=== PATIENT | female | born 1960 | race Caucasian/White ===

== ENCOUNTER → 2020-08-21 | Outpatient (CLI) | payer BC, MEDICARE ==
--- NOTE | 2020-08-21 20:35 | MR ---
EXAMINATION TYPE: MR brain wo/w migel wo DATE OF EXAM: 08/21/2020 COMPARISON: NONE at this institute. 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 Cephalgi a. TECHNIQUE: Multiplanar, multisequence images of the brain and brainstem is performed without and with IV contras t, utilizing 8.5 mL intravenous Gadavist . MRI cervical spine is performed without contrast. FINDINGS: Brain: Diffusion weighted images demonstrate no evidence of a recent infarct or other diffusion abnormality. There is no worrisome extra-axial fluid collection. There is mild ventricular and sulcal prominence . Occasional small scattered focus of T2 hyperintensity seen throughout the white matter bilaterally. Approximately 6-10 small scattered lesions. T2*weighted images show no suspicious intraparenchymal b lood products Midline structures demonstrate normal morphology. There is artifact from lower occipital craniotomy with some encephalomalacia involving the central posterior mid to inferior cerebellum. The craniocerv ical junction appears within normal limits currently. Post contrast images demonstrate no abnormal enhancement. The dural venous sinuses appear patent. The visualized sinuses are clear and the globes are intact. IMPRESSION: Mild diffuse age-related cerebral atrophy and chronic small vessel ischemic change. 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 No suspicious enhancement or new enhanc ing lesions are identified. C-SPINE: FINDINGS: Sagittal images of the cervical spine show the craniocervical junction to appear within nor mal limits. The cervical and upper thoracic spinal cord is normal in course, caliber, and signal. Sl ight grade 1 retrolisthesis C3 on C4 and to lesser degree C4 and C5. The vertebral body heights are normal. Mild disc space narrowing C5-C6 level. The bone marrow signal intensity is within normal limi ts. Axial images show C2-C3 level to appear within normal limits. Axial images at C3-C4 level show spondylolisthesis with central disc protrusion mildly facing anterio r thecal sac, there is some left-sided uncovertebral facet degenerative change causing mild left-side d neural foraminal narrowing. Axial images at C4-C5 level show spondylolisthesis with right paracentral disc protrusion mildly faci ng anterior thecal sac, some uncovertebral facet degenerative changes are present bilaterally but neptali ral foramina are maintained. Axial images at C5-C6 level showed broad based posterior disc protrusion effaces the anterior thecal sac, there is mild bilateral neural foraminal narrowing due to marginal spur disc complex. Axial images at C6-C7 level show most prominent based right paracentral disc protrusion effacing the anterolateral thecal sac and image 15, there is mild right and moderate left-sided neural foraminal n arrowing due to left foraminal disc protrusion component. Axial images at C7-T1 level are within normal limits. IMPRESSION: Multilevel spondylolisthesis and degenerative changes in the cervical spine as detailed a shree.
== END | disposition home or self-care (01) ==
LOC: RADMRIMAIN 18:07
PROVIDERS: ATTEND Family Medicine
DX: R51.9 Headache, unspecified (principal); I67.82 Cerebral ischemia
CPT/HCPCS: 70553; 72141; A9585

== ENCOUNTER → 2023-05-24 | Outpatient (CLI) | payer MEDICARE ==
--- NOTE | 2023-05-26 08:58 | MR ---
EXAMINATION TYPE: MR cervical spine wo con DATE OF EXAM: 05/24/2023 INDICATION: Patient age: Female; 62 years old; Reason for study: HERNIATED NUCLEUS M50.20. Neck and mid-back pain into arms, headaches, Hx meningio ma COMPARISON: 08/21/2020 TECHNIQUE: Multi planar, multi sequence imaging was performed utilizing: T1-weighted, T2-weighted, an d turbo inversion recovery imaging of the cervical spine. IV Contrast: None FINDINGS: Alignment: The cervical vertebral bodies have preserved heights. Alignment is within normal limits gi maximino patient positioning. Bones: Scattered Modic endplate changes with osteophytes and disc space narrowing. Multilevel degener ative disc disease is noted and most pronounced at the C5-C7 vertebral levels. Cord: The spinal cord is unremarkable with regards to their signal intensity and morphology. Discs: Multilevel disc desiccation is present. C2-C3: No significant disc pathology. The spinal canal is patent. Bilateral facet and uncovertebral joint arthropathy are present with mild left neural foraminal stenosis. The right neural foramen is p atent. C3-C4: A disc osteophyte complex is present with mild spinal canal stenosis. Bilateral facet and unc overtebral joint arthropathy are present with mild bilateral neural foraminal stenosis. C4-C5: No significant disc pathology. The spinal canal is patent. Bilateral facet and uncovertebral joint arthropathy are present with mild bilateral neural foraminal stenosis. C5-C6: No significant disc pathology. The spinal canal is patent. Bilateral facet and uncovertebral joint arthropathy are present with mild bilateral neural foraminal stenosis. C6-C7: No significant disc pathology. The spinal canal is patent. Bilateral facet and uncovertebral joint arthropathy are present with moderate left and mild right neural foraminal stenosis. C7-T1: No significant disc pathology. The spinal canal is patent. No neural foraminal stenosis. Other: Cystic structure in the prevertebral space series 601 image 14 and 501 image 13. Measuring 10 mm, previously 6 mm near the proximal esophagus and abuts the proximal esophagus. IMPRESSION: 1. No evidence for disc herniation or significant spinal canal stenosis. 2. Mild disc degeneration with associated osteoarthritic changes not significantly changed from prior . 3. Indeterminate High T2 signal lesion measuring 10 mm within the prevertebral space which has increa sed in size from 2020. This is only partially evaluated on a few sequences on this exam and in the pr ior exam. Consider MRI neck with IV contrast for further evaluation.
== END | disposition home or self-care (01) ==
LOC: RADMRIMAIN 16:58
PROVIDERS: ATTEND Family Medicine
DX: M50.31 Other cervical disc degeneration, high cervical region (principal); M47.812 Spondylosis without myelopathy or radiculopathy, cervical region
CPT/HCPCS: 72141

== ENCOUNTER → 2023-10-12 | Outpatient (CLI) | payer MEDICARE ==
--- NOTE | 2023-10-12 17:32 | CT ---
EXAMINATION TYPE: CT chest w con DATE OF EXAM: 10/12/2023 COMPARISON: None HISTORY: Rt side lung mass. CT DLP: 286.1 mGycm Automated exposure control for dose reduction was used. TECHNIQUE: CT scan of the chest is performed with IV Contrast, patient injected with 100 ml mL of Isovue 300. M IP Images are created on CT scanner and reviewed. 3D reconstructed images are created on an [employer] workstation and reviewed. FINDINGS: LUNGS: There is a 5 mm somewhat ill-defined nodule in the left upper lobe. There is a small focal area of pl eural thickening adjacent to the nodule. There is no airspace/consolidative density or abnormal interstitial density. There is no pleural effusion or pneumothorax. The great vessels chest are normal is no mediastinal, hilar or axillary adenopathy. Limited scanning through the upper abdomen reveals no gross abnormality. No focal osseous lesions are seen. IMPRESSION: 1. No mediastinal mass or adenopathy. 2. Small upper lobe 5 mm lung nodule and adjacent focal pleural thickening. 3 month follow-up CT is recommended to confirm stability.
== END | disposition home or self-care (01) ==
LOC: RADCTMAIN 16:45
PROVIDERS: ATTEND Family Medicine
DX: J94.8 Other specified pleural conditions (principal); R91.1 Solitary pulmonary nodule; R91.8 Other nonspecific abnormal finding of lung field
CPT/HCPCS: 71260; Q9967

== ENCOUNTER → 2024-01-15 | Outpatient (CLI) | payer MEDICARE ==
--- NOTE | 2024-01-17 11:29 | CT ---
EXAMINATION TYPE: CT chest w con CT DLP: 495 mGycm, Automated exposure control for dose reduction was used. DATE OF EXAM: 01/15/2024 12:07 PM COMPARISON: Chest CT 10/12/2023. CLINICAL INDICATION:Female, 63 years old with history of J98.51 MEDIASTINITIS; PHH, nodules TECHNIQUE: Multiple axial images were obtained through the chest. Sagittal and coronal reformats were created for review. Contrast used:100 mL of Isovue 300 with IV Contrast (None if empty) Oral contrast used: (None if empty) FINDINGS: LUNGS/ PLEURA: The lung parenchyma appears unremarkable. AIRWAY: Patent and unremarkable. HEART: Size within normal limits. MEDIASTINUM: No gross evidence of adenopathy. VASCULATURE: No aortic aneurysm. MUSCULOSKELETAL: No acute osseous abnormalities SOFT TISSUES/LYMPH NODES: Unremarkable. LOWER NECK: No significant findings. UPPER ABDOMEN: No significant findings. IMPRESSION: No change in appearance of right upper lobe. No sizable pulmonary mass. Follow up recommendations for incidental pulmonary nodules, if there are any, are per [employer] or [employer]. [email or web address]?lang=us
== END | disposition home or self-care (01) ==
LOC: RADCTMAIN 11:23
PROVIDERS: ATTEND Family Medicine
DX: J98.51 Mediastinitis (principal)
CPT/HCPCS: 71260; Q9967

== ENCOUNTER 2024-05-22 19:53 | Emergency (ER) | payer MEDICARE ==
[2024-05-22 20:11] VITALS: RESP 18; TEMP 98
--- NOTE | 2024-05-22 20:53 | XR ---
EXAMINATION TYPE: XR ribs LT w pa chest xray DATE OF EXAM: 05/22/2024 8:42 PM CLINICAL INDICATION:Female, 63 years old with history of Pain; PHH COMPARISON: CT chest 01/15/2024 TECHNIQUE: Frontal and oblique views of the left ribs with frontal chest radiograph. FINDINGS: The ribs have a normal appearance. No evidence of fracture. Overall, the lungs are clear. The cardiac silhouette is normal in size. The remaining osseous structures are intact. Partially vi sualized lumbar fusion hardware. IMPRESSION: No acute osseous pathology.
[2024-05-22] MEDS: KETOROLAC 15 MG/ML 1 ML VIAL IM STA (21:27)
[2024-05-22] MEDS: LIDOCAINE 4% PATCH TOPICAL ONE (21:29)
[2024-05-22] MEDS: MORPHINE SULFATE 4 MG/ML SYRINGE IM STA (21:30)
[2024-05-22] MEDS: methocarbamoL 750 MG TAB PO STA (21:30)
--- NOTE | 2024-05-22 21:44 | ED ---
General Adult HPI - General Chief complaint: Recheck/Abnormal Lab/Rx Stated complaint: Rib Injury/Pain Time Seen by Provider: 05/22/24 20:16 Source: patient Mode of arrival: wheelchair Limitations: no limitations - History of Present Illness Initial comments: This is a 63-year-old female who presents to the emergency department for pain over the left rib cage. States that her dog jumped on her and she heard/felt a pop, followed by pain. Pain is not severe when sitting still, but states whenever she coughs or moves, it becomes increasingly painful. - Related Data Previous Rx's Medication Instructions Recorded Ketorolac [Toradol] 10 mg PO Q6HR PRN #15 tab 05/22/24 Lidocaine 5% Patch [Lidoderm 5% 1 patch TOPICAL DAILY PRN #30 patch 05/22/24 Patch] methocarbamoL [Robaxin-750] 1,500 mg PO TID PRN #30 tab 05/22/24 Allergies Allergy/AdvReac Type Severity Reaction Status Date / Time Sulfa (Sulfonamide AdvReac Unknown Verified 05/22/24 20:11 Antibiotics) Review of Systems ROS Statement: Those systems with pertinent positive or pertinent negative responses have been documented in the HPI. ROS Other: All systems not noted in ROS Statement are negative. Past Medical History Additional Past Medical History / Comment(s): Arrythmia History of Any Multi-Drug Resistant Organisms: None Reported Past Surgical History: Orthopedic Surgery Past Psychological History: No Psychological Hx Reported Smoking Status: Former smoker Past Alcohol Use History: None Reported Past Drug Use History: None Reported General Exam Limitations: no limitations General appearance: alert, in no apparent distress Head exam: Present: atraumatic, normocephalic, normal inspection Respiratory exam: Present: normal lung sounds bilaterally. Absent: respiratory distress, wheezes, rales, rhonchi, stridor Cardiovascular Exam: Present: regular rate, normal rhythm, normal heart sounds. Absent: systolic murmur, diastolic murmur, rubs, gallop, clicks Neurological exam: Present: alert, oriented X3, CN II-XII intact Psychiatric exam: Present: normal affect, normal mood Skin exam: Present: warm, dry, intact, normal color. Absent: rash Course Vital Signs 05/22/24 05/22/24 20:05 22:40 Temperature 98.0 F Pulse Rate 61 54 L Respiratory 18 18 Rate Blood Pressure 125/72 171/86 O2 Sat by Pulse 97 Oximetry Medical Decision Making - Medical Decision Making This is a 63 year old female who presents to the emergency department for left rib cage pain. Was pt. sent in by a medical professional or institution? @ -No Did you speak to anyone other than the patient for history? @ -No Did you review nursing and triage notes? @ -Yes, and I agree, it is accurate with regards to the patient's symptoms. Were old charts reviewed? @ -No Differential Diagnosis? @ -Differential Rib Pain: Rib fracture, contusion, pneumothorax, pneumonia, this is not meant to be an all-inclusive list. EKG interpreted by me (3pts min.)? @ -Not obtained X-rays interpreted by me (1pt min.)? @ -X-ray of the left rib cage and PA chest obtained. My interpretation identifies no rib fractures. CT interpreted by me (1pt min.)? @ -Not obtained U/S interpreted by me (1pt. min.)? @ -Not obtained What testing was considered but not performed? (CT, X-rays, U/S, labs)? Why? @ -None What meds were considered but not given? Why? @ -None Did you discuss the management of the patient with other professionals? @ -No Did you reconcile home meds? @ -No Was smoking cessation discussed for >3mins.? @ -No Was critical care preformed (if so, how long)? @ -No Were there social determinants of health that impacted care today? How? (Homelessness, low income, unemployed, alcoholism, drug addiction, transportatio n, low edu. Level, literacy, decrease access to med. care, custodial, rehab)? @ -No Was there de-escalation of care discussed even if they declined? (Discuss DNR or withdrawal of care, Hospice)? @ -No What co-morbidities impacted this encounter? (DM, HTN, Smoking, COPD, CAD, Cancer, CVA, Hep., AIDS, mental health diagnosis, sleep apnea, morbid obesity)? @ -None Was patient admitted / discharged? @ -Discharged. X-ray of the left rib cage and chest obtained revealing no obvious rib fractures. Advised that this does not necessarily exclude a hairline fracture and she will be managed the same. Pain was managed in the emergency department. We discussed incentive spirometer use with several deep breaths an hour to reduce the risk of developing a secondary pneumonia. Prescription for Toradol, Robaxin, and lidocaine patches provided. Advised close follow-up with her primary care provider. Patient discharged home in stable condition. Case discussed with ED attending Dr. Gutierrez. Return precautions reviewed in depth, the patient is instructed to return to the emergency department with any new, worsening, or concerning symptoms. Patient verbalized understanding. Undiagnosed new problem with uncertain prognosis? @ -None Drug Therapy requiring intensive monitoring for toxicity (Heparin, Nitro, Insulin, Cardizem)? @ -None Were any procedures done? @ -None Diagnosis/symptom? @ -Left rib contusion Acute, or Chronic, or Acute on Chronic? @ -Acute Uncomplicated (without systemic symptoms) or Complicated (systemic symptoms)? @ -Uncomplicated Side effects of treatment? @ -None Exacerbation, Progression, or Severe Exacerbation] @ -Not applicable Poses a threat to life or bodily function? @ -No - Radiology Data Radiology results: report reviewed, image reviewed Disposition Clinical Impression: Contusion of rib on left side Disposition: HOME SELF-CARE Instructions (If sedation given, give patient instructions): Rib Contusion (ED) Additional Instructions: Return to the emergency department with any new, worsening, or concerning symptoms. Take the Toradol with Tylenol as needed for pain relief. If you choose to take the Toradol, do not take any other anti-inflammatories such as ibuprofen, take one or the other. You can take the Robaxin as 1 to 2 tablets up to 3-4 times daily. This is a muscle relaxant, take either this or what you are already prescribed. You can also apply the lidocaine patches daily. Make sure you take several deep breaths an hour despite the pain to reduce the risk of developing a secondary pneumonia. Follow up with your primary care provider in 1-2 days. Prescriptions: Lidocaine 5% Patch [Lidoderm 5% Patch] 1 patch TOPICAL DAILY PRN #30 patch PRN Reason: Pain methocarbamoL [Robaxin-750] 1,500 mg PO TID PRN #30 tab PRN Reason: Pain Ketorolac [Toradol] 10 mg PO Q6HR PRN #15 tab PRN Reason: Pain Is patient prescribed a controlled substance at d/c from ED?: No Referrals: Yair Peterson DO [Primary Care Provider] - 1-2 days Time of Disposition: 22:02
[2024-05-22 23:01] VITALS: BP 171/86; PULSE 54
== END 2024-05-22 22:41 | disposition home or self-care (01) ==
LOC: EC 19:53
DX: R52 Pain, unspecified
CPT/HCPCS: 96372; 99283

== ENCOUNTER 2025-03-10 01:29 | Inpatient (IN) | payer MEDICARE ==
[2025-03-10] MEDS: ONDANSETRON 4 MG/2 ML VIAL IVP STA (02:31)
[2025-03-10] MEDS: SODIUM CHLORIDE 0.9% 1,000 ML IV ONE (02:31)
[2025-03-10] MEDS: MORPHINE SULFATE 4 MG/ML SYRINGE IVP STA (02:32)
[2025-03-10 02:53] LABS: Basophils # (A) 0.02 10*3/uL (0.00-0.10); Basophils % (A) 0.1 %; Eosinophils # (A) 0.01 10*3/uL (0.04-0.35); Eosinophils % (A) 0.1 %; HCT 32.3 % (37.2-46.3); HGB 11.4 g/dL (12.0-15.0); Lymphocytes # (A) 0.76 10*3/uL (0.90-5.00); Lymphocytes % (A) 5.6 %; MCH 32.9 pg (27.0-32.0); MCHC 35.3 g/dL (32.0-37.0); MCV 93.4 fL (80.0-97.0); Mean Platelet Volume 9.1 fL (9.5-12.2); Monocytes # (A) 0.72 10*3/uL (0.20-1.00); Monocytes % (A) 5.3 %; Neutrophils # (A) 11.96 10*3/uL (1.80-7.70); Neutrophils % (A) 88.5 %; Platelet Count 302 10*3/uL (140-440); RBC 3.46 10*6/uL (4.10-5.20); RDW 12.7 % (11.5-14.5); WBC 13.52 10*3/uL (4.50-10.00)
[2025-03-10 03:18] LABS: ALT 20 U/L (4-34); AST 48 U/L (14-36); African American GFR (CKD) 48 (>60 ml/min/1.73 sqM); Albumin 3.3 g/dL (3.5-5.0); Alkaline Phosphatase 63 U/L (38-126); Anion Gap 13 mmol/L; Blood Urea Nitrogen 35 mg/dL (7-17); Calcium 8.7 mg/dL (8.4-10.2); Carbon Dioxide 22 mmol/L (22-30); Chloride 96 mmol/L (98-107); Glucose 100 mg/dL (74-99); Lipase 68 U/L (23-300); Non-African American GFR(CKD) 41 (>60 ml/min/1.73 sqM); Sodium 131 mmol/L (137-145); Total Bilirubin 0.9 mg/dL (0.2-1.3); Total Protein 5.4 g/dL (6.3-8.2)
[2025-03-10] MEDS: SODIUM CHLORIDE 0.9% 1,000 ML IV SCH ×2 (03:53→06:14)
[2025-03-10] MEDS: HYDROmorphone 0.5 MG/0.5 ML SYRINGE IVP STA (03:54)
--- NOTE | 2025-03-10 04:13 | ED ---
Abdominal Pain HPI - General Chief Complaint: Abdominal Pain Stated Complaint: Bowel obstruction Time Seen by Provider: 03/10/25 02:00 Source: patient, EMS Mode of arrival: EMS Limitations: no limitations - History of Present Illness Initial Comments: 64-year-old female transferred from [facility] for colonic obstruction due to fecal impaction with colonic distention. Patient reports that she has not had a bowel movement in last 3 days. She initially presented to [facility] because of 2 days worth of severe abdominal pain and cramping. She does admit to nausea. She denies any rectal bleeding. No known fevers. No history of abdominal surgeries. At times the pain makes her feel short of breath. At [facility] she underwent CT scan which showed colonic obstruction due to impaction. In the documentation from [facility] she was noted to have a few bowel movements while there however considering that the patient was also hypotensive in the 80-90 systolic range and had leukocytosis of 21.73 she was transferred to our facility for higher level of care. The patient did receive Zosyn and vancomycin by [facility]. Since being here she has had some bowel movements but continues to report pain. - Related Data Home Medications Medication Instructions Recorded Confirmed Cetirizine HCl [Zyrtec] 10 mg PO DAILY 03/10/25 03/10/25 DULoxetine HCL [Cymbalta] 60 mg PO BID 03/10/25 03/10/25 Ergocalciferol (Vitamin D2) 1,250 mcg PO FR 03/10/25 03/10/25 [Drisdol (GEQ) 1,250 MCG (50,000 IU)] HYDROcodone/APAP 10-325MG [[place] 1 tab PO Q8H PRN 03/10/25 03/10/25 10-325] Ibuprofen [Motrin] 800 mg PO Q8H 03/10/25 03/10/25 Magnesium Oxide [Mag-Ox] 400 mg PO DAILY 03/10/25 03/10/25 Melatonin 40 mg PO HS 03/10/25 03/10/25 Mirtazapine [Remeron] 30 mg PO HS 03/10/25 03/10/25 Pravastatin Sodium [Pravachol] 20 mg PO HS 03/10/25 03/10/25 amLODIPine [Norvasc] 5 mg PO DAILY 03/10/25 03/10/25 atenoloL [Tenormin] 100 mg PO HS 03/10/25 03/10/25 hydroCHLOROthiazide [Hydrodiuril] 25 mg PO DAILY 03/10/25 03/10/25 lisinopriL [Zestril] 40 mg PO DAILY 03/10/25 03/10/25 metFORMIN HCL [Glucophage] 500 mg PO DAILY 03/10/25 03/10/25 tiZANidine [Zanaflex] 4 mg PO Q8HR PRN 03/10/25 03/10/25 Allergies Allergy/AdvReac Type Severity Reaction Status Date / Time Sulfa (Sulfonamide AdvReac Unknown Verified 05/22/24 20:11 Antibiotics) Review of Systems ROS Statement: Those systems with pertinent positive or pertinent negative responses have been documented in the HPI. ROS Other: All systems not noted in ROS Statement are negative. Past Medical History Additional Past Medical History / Comment(s): Arrythmia History of Any Multi-Drug Resistant Organisms: None Reported Past Surgical History: Orthopedic Surgery Past Psychological History: No Psychological Hx Reported Smoking Status: Former smoker Past Alcohol Use History: None Reported Past Drug Use History: None Reported - Past Family History Mother Additional Family Medical History / Comment(s): mental health disorders Sister(s) Additional Family Medical History / Comment(s): mental health disorders General Exam Limitations: no limitations General appearance: alert, in no apparent distress Head exam: Present: atraumatic, normocephalic, normal inspection Eye exam: Present: normal appearance, EOMI Neck exam: Present: normal inspection. Absent: meningismus Respiratory exam: Present: normal lung sounds bilaterally. Absent: respiratory distress, wheezes, rales, rhonchi, stridor Cardiovascular Exam: Present: regular rate, normal rhythm, normal heart sounds. Absent: systolic murmur, diastolic murmur, rubs, gallop, clicks GI/Abdominal exam: Present: soft, tenderness. 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 sent in by a medical professional or institution (, PA, OIL FIELD TESTER, urgent care, hospital, or long-term...) When possible be specific @ -No Did you speak to anyone other than the patient for history (EMS, parent, family, police, friend...)? What history was obtained from this source @ -No Did you review nursing and triage notes (agree or disagree)? Why? @ -I reviewed and agree with nursing and triage notes Were old charts reviewed (outside hosp., previous admission, EMS record, old EKG, old radiological studies, urgent care reports/EKG's, long-term records)? Report findings @ -Reviewed the records from [facility] Differential Diagnosis (chest pain, altered mental status, abdominal pain women, abdominal pain men, vaginal bleeding, weakness, fever, dyspnea, syncope, headache, dizziness, GI bleed, back pain, seizure, CVA, palpatations, mental health, musculoskeletal)? @ -[facility] Differential Abdominal Pain Women: Appendicitis, Cholecystitis, diverticulosis, ischemic bowel, pancreatitis, hepatitis, UTI, gastroenteritis, AAA, incarcerated hernia, bowel obstruction, constipation, inflammatory bowel, hepatitis, peptic ulcer disease, splenic infarction, perforated viscus, vulvitis, ovarian torsion, PID, kidney stone, placenta abruption... This is not meant to be an all-inclusive list EKG interpreted by me (3pts min.). @ -As above X-rays interpreted by me (1pt min.). @ -[facility] x-ray does show several air-fluid levels CT interpreted by me (1pt min.). @ -Repeat CT obtained, report is pending U/S interpreted by me (1pt. min.). @ -None done What testing was considered but not performed or refused? (CT, X-rays, U/S, labs)? Why? @ -None What meds were considered but not given or refused? Why? @ -None Did you discuss the management of the patient with other professionals (professionals i.e. , PA, OIL FIELD TESTER, lab, RT, psych nurse, clinical social work therapist, head of conservation, teacher, training and development officer, medical case worker)? Give summary @ -My attending spoke with the [facility] provider on-call who accepted admission Was smoking cessation discussed for >3mins.? @ -No Was critical care preformed (if so, how long)? @ -No Were there social determinants of health that impacted care today? How? (Homelessness, low income, unemployed, alcoholism, drug addiction, transpor tation, low edu. Level, literacy, decrease access to med. care, longterm, rehab)? @ -No Was there de-escalation of care discussed even if they declined (Discuss DNR or withdrawal of care, Hospice)? DNR status @ -No What co-morbidities impacted this encounter? (DM, HTN, Smoking, COPD, CAD, Cancer, CVA, ARF, Chemo, Hep., AIDS, mental health diagnosis, sleep apnea, morbid obesity)? @ -None Was patient admitted / discharged? Hospital course, mention meds given and route, prescriptions, significant lab abnormalities, going to OR and other pertinent info. @ -64-year-old female transferred from [facility] for abdominal pain. At [facility] CT indicated that she had a colonic obstruction secondary to fecal impaction. Patient has had several bowel movements while here, though she does report continued abdominal pain and nausea. [facility] x-ray is obtained which does show several air-fluid levels. Lactic acid is 2.5, creatinine 1.35 and BUN 35, patient is receiving IV fluids. White count 13.52, patient received Zosyn and vancomycin at [facility]. Hemoglobin 11.4. Patient will require admission for abdominal pain and possible colonic obstruction. Repeat CT of the abdomen and pelvis was obtained. Patient is agreeable with this plan. I discussed this case with my attending Dr. Trachy Undiagnosed new problem with uncertain prognosis? @ -No Drug Therapy requiring intensive monitoring for toxicity (Heparin, Nitro, Insulin, Cardizem)? @ -No Were any procedures done? @ -No Diagnosis/symptom? @ -Abdominal pain, colonic obstruction Acute, or Chronic, or Acute on Chronic? @ -Acute Uncomplicated (without systemic symptoms) or Complicated (systemic symptoms)? @ -Complicated Side effects of treatment? @ -No Exacerbation, Progression, or Severe Exacerbation? @ -No Poses a threat to life or bodily function? How? (Chest pain, [place], [place], pneumonia, PE, COPD, DKA, ARF, appy, cholecystitis, CVA, Diverticulitis, Homicidal, Suicidal, threat to staff... and all critical care pts) @ -Yes - Lab Data Result diagrams: 03/10/25 02:28 03/10/25 02:28 Lab Results 03/10/25 03/10/25 03/10/25 Range/Units 02:28 02:28 02:28 WBC 13.52 H (4.50-10.00) 10*3/uL RBC 3.46 L (4.10-5.20) 10*6/uL Hgb 11.4 L (12.0-15.0) g/dL Hct 32.3 L (37.2-46.3) % MCV 93.4 (80.0-97.0) fL MCH 32.9 H (27.0-32.0) pg MCHC 35.3 (32.0-37.0) g/dL Plt Count 302 (140-440) 10*3/uL MPV 9.1 L (9.5-12.2) fL Immature Gran % (Auto) 0.4 % Neutrophils % 88.5 % Lymphocytes % 5.6 % Monocytes % 5.3 % Eosinophils % 0.1 % Basophils % 0.1 % Immature Gran # 0.05 H (0.00-0.04) 10*3/uL Neutrophils # 11.96 H (1.80-7.70) 10*3/uL Lymphocytes # 0.76 L (0.90-5.00) 10*3/uL Monocytes # 0.72 (0.20-1.00) 10*3/uL Eosinophils # 0.01 L (0.04-0.35) 10*3/uL Basophils # 0.02 (0.00-0.10) 10*3/uL Sodium 131 L (137-145) mmol/L Potassium 4.0 (3.5-5.1) mmol/L Chloride 96 L (98-107) mmol/L Carbon Dioxide 22 (22-30) mmol/L Anion Gap 13 mmol/L BUN 35 H (7-17) mg/dL Creatinine 1.35 H (0.52-1.04) mg/dL Est GFR (CKD-EPI)AfAm 48 (>60 ml/min/1.73 sqM) Est GFR (CKD-EPI)NonAf 41 (>60 ml/min/1.73 sqM) Glucose 100 H (74-99) mg/dL Estimated Ave Glu mg/dL mg/dL Hemoglobin A1c (<=6.0) % Lactic Ac Sepsis Rflx Plasma Lactic Acid Ga 2.5 H* (0.7-2.0) mmol/L Calcium 8.7 (8.4-10.2) mg/dL Total Bilirubin 0.9 (0.2-1.3) mg/dL AST 48 H (14-36) U/L ALT 20 (4-34) U/L Alkaline Phosphatase 63 (38-126) U/L C-Reactive Protein (<1.0) mg/dL Total Protein 5.4 L (6.3-8.2) g/dL Albumin 3.3 L (3.5-5.0) g/dL Lipase 68 (23-300) U/L 03/10/25 03/10/25 03/10/25 Range/Units 02:28 02:28 03:47 WBC (4.50-10.00) 10*3/uL RBC (4.10-5.20) 10*6/uL Hgb (12.0-15.0) g/dL Hct (37.2-46.3) % MCV (80.0-97.0) fL MCH (27.0-32.0) pg MCHC (32.0-37.0) g/dL Plt Count (140-440) 10*3/uL MPV (9.5-12.2) fL Immature Gran % (Auto) % Neutrophils % % Lymphocytes % % Monocytes % % Eosinophils % % Basophils % % Immature Gran # (0.00-0.04) 10*3/uL Neutrophils # (1.80-7.70) 10*3/uL Lymphocytes # (0.90-5.00) 10*3/uL Monocytes # (0.20-1.00) 10*3/uL Eosinophils # (0.04-0.35) 10*3/uL Basophils # (0.00-0.10) 10*3/uL Sodium (137-145) mmol/L Potassium (3.5-5.1) mmol/L Chloride (98-107) mmol/L Carbon Dioxide (22-30) mmol/L Anion Gap mmol/L BUN (7-17) mg/dL Creatinine (0.52-1.04) mg/dL Est GFR (CKD-EPI)AfAm (>60 ml/min/1.73 sqM) Est GFR (CKD-EPI)NonAf (>60 ml/min/1.73 sqM) Glucose (74-99) mg/dL Estimated Ave Glu mg/dL 120 mg/dL Hemoglobin A1c 5.8 (<=6.0) % Lactic Ac Sepsis Rflx Y Plasma Lactic Acid Ga (0.7-2.0) mmol/L Calcium (8.4-10.2) mg/dL Total Bilirubin (0.2-1.3) mg/dL AST (14-36) U/L ALT (4-34) U/L Alkaline Phosphatase (38-126) U/L C-Reactive Protein 0.9 (<1.0) mg/dL Total Protein (6.3-8.2) g/dL Albumin (3.5-5.0) g/dL Lipase (23-300) U/L Disposition Clinical Impression: Abdominal pain Disposition: ADMITTED IP TO THIS HOSP Condition: Fair
[2025-03-10] MEDS ORDERED: ONDANSETRON 4 MG/2 ML VIAL IVP PRN (04:30)
[2025-03-10] MEDS ORDERED: NALOXONE 0.4 MG/ML 1 ML VIAL IV PRN (04:30)
--- NOTE | 2025-03-10 05:48 | XR ---
EXAM: XR Abdomen, 2 Views CLINICAL HISTORY: ITS.REASON XR Reason: pain TECHNIQUE: Frontal view of the abdomen/pelvis with upright view of the abdomen. COMPARISON: No relevant prior studies available. FINDINGS: Intraperitoneal space: No free air. Gastrointestinal tract: Air-fluid levels are seen within the abdomen which is a nonspecific bowel gas pattern. No dilation. Bones/joints: Posterior spinal fusion is in place at L4-S1. Degenerative changes are seen in the spine and hips. No acute fracture. IMPRESSION: No acute findings in the abdomen or pelvis.
--- NOTE | 2025-03-10 05:55 | CT ---
EXAM: CT Abdomen and Pelvis With Intravenous Contrast CLINICAL HISTORY: ITS.REASON CT Reason: abdominal pain TECHNIQUE: Axial computed tomography images of the abdomen and pelvis with intravenous contrast. CTDI is 25.5 mGy and DLP is 1233.8 mGy-cm. This CT exam was performed using one or more of the following dose reduction techniques: automated exposure control, adjustment of the mA and/or kV according to patient size, and/or use of iterative reconstruction technique. COMPARISON: No relevant prior studies available. FINDINGS: Lung bases: Unremarkable. No mass. No consolidation. ABDOMEN: Liver: Findings suggestive of hepatic steatosis. Gallbladder and bile ducts: Dilatation of the gallbladder lumen with question of gallbladder wall thickening. No cholelithiasis. No choledocholithiasis. Pancreas: Unremarkable. No mass. No ductal dilation. Spleen: Unremarkable. No splenomegaly. Adrenals: Unremarkable. No mass. Kidneys and ureters: Unremarkable. No solid mass. No hydronephrosis. Stomach and bowel: Diffuse colonic wall thickening. No evidence of obstruction. Fluid density is seen within the colonic lumen suggesting increased transit state. PELVIS: Appendix: No findings to suggest acute appendicitis. Bladder: Unremarkable. No mass. Reproductive: Unremarkable as visualized. ABDOMEN and PELVIS: Intraperitoneal space: Free fluid is seen surrounding the liver and the dependent portion of the pelvis. No free air. Bones/joints: Posterior spinal fusion is in place at L3-S1. Degenerative changes are seen within the spine and hips. No acute fracture. No dislocation. Soft tissues: Unremarkable. Vasculature: Unremarkable. No abdominal aortic aneurysm. Lymph nodes: Unremarkable. No enlarged lymph nodes. IMPRESSION: 1. Diffuse colitis which may represent underlying infectious or inflammatory process. No associated obstruction. 2. Dilatation of the gallbladder lumen and question of gallbladder wall thickening. If concern for acute cholecystitis recommend right upper quadrant ultrasound.
--- NOTE | 2025-03-10 06:34 | XR ---
EXAM: XR Chest, 1 View CLINICAL HISTORY: ITS.REASON XR Reason: ng tube placement TECHNIQUE: Frontal view of the chest. COMPARISON: No relevant prior studies available. FINDINGS: Lungs: Unremarkable. No consolidation. Pleural space: Unremarkable. No pneumothorax. Heart: Unremarkable. No cardiomegaly. Mediastinum: Unremarkable. Normal mediastinal contour. Bones/joints: Right shoulder arthroplasty is in place. No acute fracture. Tubes, lines and devices: Enteric tube is in place with the side-port at the level of the gastroesophageal junction, recommend advancement. IMPRESSION: 1. Enteric tube as above. 2. Otherwise no acute findings seen within the chest.
[2025-03-10] MEDS ORDERED: DEXTROSE 50% SYRINGE 50 ML IVP PRN ×2 (09:57)
[2025-03-10] MEDS: HYDROmorphone 0.5 MG/0.5 ML SYRINGE IVP PRN (10:14)
[2025-03-10] MEDS: CEFEPIME 2 GM in SODIUM CHLORIDE 0.9% 100 ML IVPB SCH (10:15)
[2025-03-10 10:39] LABS: Glucose,Whole Blood 109 mg/dL (70-110)
--- NOTE | 2025-03-10 11:03 | US ---
EXAMINATION TYPE: US gallbladder DATE OF EXAM: 03/10/2025 COMPARISON: NONE CLINICAL INDICATION: Female, 64 years old with history of RUQ abdominal pain; Abdominal pain TECHNIQUE: Grayscale and color Doppler imaging of the right upper quadrant. FINDINGS: EXAM MEASUREMENTS: Liver Length: 18.2 cm Gallbladder Wall: 0.2 cm CBD: 0.5 cm, color Doppler imaging was used to identify. Right Kidney: 9.6 x 4.5 x 4.3 cm PRINT OPERATOR NOTES: Pancreas: portions visualized wnl, tail obscured by overlying bowel gas. Liver: Enlarged, free fluid noted around the right lobe of the liver Gallbladder: limited visibility, internal echoes may or may not be artifactual. Evidence for sonographic Brand's sign: No CBD: wnl Right Kidney: wnl, very obscured by bowel gas and patient habitus. Hypoechoic tubular structure that did not peristalse within the epigastric region going toward the JAYNA Q, unknown origin/etiology. There is a loop of bowel present in this region based on the CT examinati on. Exam very limited due to bowel gas, patient body habitus, and intercostal scanning. IMPRESSION: 1. Small amount of free fluid adjacent to the liver. 2. [facility]atome[facility]aly [facility], , 03/10/2025 11:01 AM
[2025-03-10] MEDS: INSULIN LISPRO (HumaLOG) 100 UNIT/ML 10 mL VL SQ SCH ×2 (11:47→17:00)
[2025-03-10] MEDS: metroNIDAZOLE-NS PMX 500 MG in SALINE 1 100ML.BAG IVPB SCH (11:48)
--- NOTE | 2025-03-10 13:36 | P.GSCN ---
History of Present Illness Consult date: 03/10/25 History of present illness: CHIEF COMPLAINT: Abdominal pain HISTORY OF PRESENT ILLNESS: This is a 64-year-old male who presents to the ER due to abdominal pain x 1 week and over the last couple of days the pain has increased. Patient describes the pain as feeling like menstrual cramps that radiate to the back. Patient initially had gone to [facility] and was found to have concerns for bowel obstruction secondary to fecal impaction. Patient reports having a few bowel movements there. She reports that the stool was both liquid and solid. She also had 1 episode of vomiting while she was there. Due to hypotension and the fecal impaction she was transferred to [facility] for evaluation. A repeat scalp CAT scan was completed here that had reported that diffuse colitis and no evidence of bowel obstruction. Did report dilatation of the gallbladder and questionable gallbladder wall thickening. Patient did report having pain in the right upper quadrant. She did have a lactic acid and white count elevated on admission. Patient denies any prior history of colitis. She reports her last colonoscopy was a year ago with no significant findings and she has had an EGD about 2 to 3 months ago and has a known hiatal hernia. Patient does report taking pain medication at home due to chronic back pain and history of fibromyalgia. She denies any prior abdominal surgeries. Hypotension improving. Patient seen and examined with Dr. Jacobson PAST MEDICAL HISTORY: Fibromyalgia, chronic back pain, arrhythmias PAST SURGICAL HISTORY: See below MEDICATIONS: See below ALLERGIES: See below SOCIAL HISTORY: No illicit drug use. REVIEW OF SYSTEMS: CONSTITUTIONAL: Denies fever or chills. HEENT: Denies blurred vision, vision changes, or eye pain. Denies hemoptysis CARDIOVASCULAR: Denies chest pain or pressure. RESPIRATORY: No shortness of breath. GASTROINTESTINAL: See HPI for pertinent findings HEMATOLOGIC: Denies bleeding disorders. GENITOURINARY: Denies any blood in urine or increased urinary frequency. SKIN: Denies pruitis. Denies rash. PHYSICAL EXAM: VITAL SIGNS: Reviewed GENERAL: Well-developed in no acute distress. HEENT: No sclera icterus. Extraocular movements grossly intact. Moist buccal mucosa. Head is atraumatic, normocephalic. No nasal drainage. ABDOMEN: Soft. Nondistended. Tenderness palpation right upper quadrant no rebound or guarding noted NEUROLOGIC: Alert and oriented. Cranial nerves II through XII grossly intact. LABORATORY DATA: WBC 13.52 Hgb 11.4 platelets 302 Sodium 131 potassium 4.0 creatinine 1.35 Lactic acid 2.5 down to 1.8 Lipase 68 total bilirubin 0.9 AST 48 ALT 20 alk phos 63 IMAGING: CT scan abdomen pelvis from [place] reports impacted stool within the sigmoid colon and rectum with upstream colonic obstruction. Colonic distention up to 7 cm. No pneumatosis perforation or abscess. Mucosal thickening within the duodenum consistent with nonspecific duodenitis CT scan pelvis from [facility] reports diffuse colitis which may represent underlying infectious or inflammatory process. No associated obstruction. Dilatation of the gallbladder lumen and question of gallbladder wall thickening. If concern for acute cholecystitis recommend right upper quadr ant abdominal ultrasound Gallbladder ultrasound reports small amount of free air adjacent to the liver hepatomegaly. Gallbladder Limited visibility ASSESSMENT: 1. Abdominal pain 2. Bowel obstruction secondary to fecal impaction noted on CT scan from [facility]. Repeat CAT scan here shows no evidence of bowel obstruction but does report diffuse colitis. Patient had large bowel movements at [place]. 3. Diffuse colitis noted on CT scan PLAN: -Discontinue NG tube -Advance diet to clear liquids -Agree with antibiotics -Continue IV fluids -Continue pain management -Increase activity level - DVT prophylaxis subcu heparin Physician Provider Relations Coordinator note has been reviewed by physician. Signing provider agrees with the documented findings, assessment, and plan of care. Past Medical History Additional Past Medical History / Comment(s): Arrythmia History of Any Multi-Drug Resistant Organisms: None Reported Past Surgical History: Orthopedic Surgery Past Psychological History: No Psychological Hx Reported Smoking Status: Former smoker Past Alcohol Use History: None Reported Past Drug Use History: None Reported Medications and Allergies Home Medications Medication Instructions Recorded Confirmed Type Cetirizine HCl [Zyrtec] 10 mg PO DAILY 03/10/25 03/10/25 History DULoxetine HCL [Cymbalta] 60 mg PO BID 03/10/25 03/10/25 History Ergocalciferol (Vitamin D2) 1,250 mcg PO FR 03/10/25 03/10/25 History [Drisdol (GEQ) 1,250 MCG (50,000 IU)] HYDROcodone/APAP 10-325MG [[place] 1 tab PO Q8H PRN 03/10/25 03/10/25 History 10-325] Ibuprofen [Motrin] 800 mg PO Q8H 03/10/25 03/10/25 History Magnesium Oxide [Mag-Ox] 400 mg PO DAILY 03/10/25 03/10/25 History Melatonin 40 mg PO HS 03/10/25 03/10/25 History Mirtazapine [Remeron] 30 mg PO HS 03/10/25 03/10/25 History Pravastatin Sodium [Pravachol] 20 mg PO HS 03/10/25 03/10/25 History amLODIPine [Norvasc] 5 mg PO DAILY 03/10/25 03/10/25 History atenoloL [Tenormin] 100 mg PO HS 03/10/25 03/10/25 History hydroCHLOROthiazide [Hydrodiuril] 25 mg PO DAILY 03/10/25 03/10/25 History lisinopriL [Zestril] 40 mg PO DAILY 03/10/25 03/10/25 History metFORMIN HCL [Glucophage] 500 mg PO DAILY 03/10/25 03/10/25 History tiZANidine [Zanaflex] 4 mg PO Q8HR PRN 03/10/25 03/10/25 History Allergies Allergy/AdvReac Type Severity Reaction Status Date / Time Sulfa (Sulfonamide AdvReac Unknown Verified 05/22/24 20:11 Antibiotics) Surgical - Exam Vital Signs Temp Pulse Resp BP Pulse Ox 97.8 F 55 L 18 108/69 94 L 03/10/25 01:38 03/10/25 01:38 03/10/25 01:38 03/10/25 01:38 03/10/25 01:38 Results - Labs 03/10/25 02:28 03/10/25 02:28 Abnormal Lab Results - Last 24 Hours (Table) 03/10/25 03/10/25 03/10/25 Range/Units 02:28 02:28 02:28 WBC 13.52 H (4.50-10.00) 10*3/uL RBC 3.46 L (4.10-5.20) 10*6/uL Hgb 11.4 L (12.0-15.0) g/dL Hct 32.3 L (37.2-46.3) % MCH 32.9 H (27.0-32.0) pg MPV 9.1 L (9.5-12.2) fL Immature Gran # 0.05 H (0.00-0.04) 10*3/uL Neutrophils # 11.96 H (1.80-7.70) 10*3/uL Lymphocytes # 0.76 L (0.90-5.00) 10*3/uL Eosinophils # 0.01 L (0.04-0.35) 10*3/uL Sodium 131 L (137-145) mmol/L Chloride 96 L (98-107) mmol/L BUN 35 H (7-17) mg/dL Creatinine 1.35 H (0.52-1.04) mg/dL Glucose 100 H (74-99) mg/dL Plasma Lactic Acid Ga 2.5 H* (0.7-2.0) mmol/L AST 48 H (14-36) U/L Total Protein 5.4 L (6.3-8.2) g/dL Albumin 3.3 L (3.5-5.0) g/dL Diabetes panel 03/10/25 Range/Units 02:28 Sodium 131 L (137-145) mmol/L Potassium 4.0 (3.5-5.1) mmol/L Chloride 96 L (98-107) mmol/L Carbon Dioxide 22 (22-30) mmol/L BUN 35 H (7-17) mg/dL Creatinine 1.35 H (0.52-1.04) mg/dL Glucose 100 H (74-99) mg/dL Calcium 8.7 (8.4-10.2) mg/dL AST 48 H (14-36) U/L ALT 20 (4-34) U/L Alkaline Phosphatase 63 (38-126) U/L Total Protein 5.4 L (6.3-8.2) g/dL Albumin 3.3 L (3.5-5.0) g/dL Calcium panel 03/10/25 Range/Units 02:28 Calcium 8.7 (8.4-10.2) mg/dL Albumin 3.3 L (3.5-5.0) g/dL Pituitary panel 03/10/25 Range/Units 02:28 Sodium 131 L (137-145) mmol/L Potassium 4.0 (3.5-5.1) mmol/L Chloride 96 L (98-107) mmol/L Carbon Dioxide 22 (22-30) mmol/L BUN 35 H (7-17) mg/dL Creatinine 1.35 H (0.52-1.04) mg/dL Glucose 100 H (74-99) mg/dL Calcium 8.7 (8.4-10.2) mg/dL Adrenal panel 03/10/25 Range/Units 02:28 Sodium 131 L (137-145) mmol/L Potassium 4.0 (3.5-5.1) mmol/L Chloride 96 L (98-107) mmol/L Carbon Dioxide 22 (22-30) mmol/L BUN 35 H (7-17) mg/dL Creatinine 1.35 H (0.52-1.04) mg/dL Glucose 100 H (74-99) mg/dL Calcium 8.7 (8.4-10.2) mg/dL Total Bilirubin 0.9 (0.2-1.3) mg/dL AST 48 H (14-36) U/L ALT 20 (4-34) U/L Alkaline Phosphatase 63 (38-126) U/L Total Protein 5.4 L (6.3-8.2) g/dL Albumin 3.3 L (3.5-5.0) g/dL
[2025-03-10] MEDS: ACETAMINOPHEN IV (For NPO) 1,000 MG in EMPTY BAG 1 BAG IVPB ONE (13:44)
[2025-03-10 14:26] LABS: Glucose,Whole Blood 131 mg/dL (70-110)
--- NOTE | 2025-03-10 15:22 | P.HPIM ---
History of Present Illness H&P Date: 03/10/25 Patient is a 64-year-old female with hypertension, depression, insomnia, no history of abdominal surgery here as transfer from [facility] due to severe abdominal pain. Patient reported that she has not had a bowel movement in the last 3 days and was experiencing worsening cramping abdominal pain with associated nausea in the last 5 days that was worse with movement and deep inhalations. She sought care in [facility] due to 2 days of severe abdominal pain with associated nausea and multiple epsiodes of vomiting that was dark but nonbloody. She underwent a CT scan of the abdomen and results showed colonic obstruction with distension due to impaction. Prior to transfer patient was given 2L IV fluid boluses, placed on Zosyn and vancomycin and did have a few bowel movements that watery but nonbloody during admission however patient was consistently hypotensive with an SBP of 80-90 and leukocytosis of 21.7 which led them to transfer to our facility for higher level of care. She denied fevers, hematochezia, jaundice, abdominal distention, bruising or bleeding. She says she usually has a BM 1-2 days. Diet consists of fruits like grapes, watermelon, apples, banannas. Has had a colonoscopy for cancer screening and was negative. On admission: Vitals: Temp 97.8, pulse rate 55, RR 18, BP 108/69, O2 saturation 94% on room air Labs: WBC 13.5, hemoglobin 11.4, MCV 93.4, platelet count 302,000, sodium 131, potassium 4, chloride 96, bicarb 22, BUN 35, creatinine 1.35 glucose 100, lactic acid 2.5, AST 48, calcium 8.7, lipase 68. Imaging: KUB x-ray showed no acute findings in the abdomen or pelvis. Abdominal pelvis CT showed diffuse colitis with no associated obstruction, dilation of the gallbladder lumen and questionable gallbladder bladder wall thickening. Chest x-ray showed no acute findings. ED documentation reviewed. Review of systems: Pertinent positives and negatives as discussed in HPI, a complete review of systems was performed and all other systems are negative. Social history: Tobacco: Former smoker. Quit in 1988. 1-2ppd for 15 years. Alcohol: Former history of intake. Quit 20 years ago. Daily beer jugs 6-10 for 20 years. Recreational drugs: none Travel: none Physical examination: Vital signs reviewed General: non toxic, mild distress, appears at stated age, on room air Derm: no unusual rashes/lesions, warm Head: atraumatic, normocephalic, symmetric Eyes: EOMI, anicteric sclera, pupils equal round reactive to light ENT: Nose and ears atraumatic, NG tube noted Neck: No cervical lymphadenopathy, trachea midline, supple Mouth: no lip lesion, mucus membranes moist Cardiovascular: S1S2 reg, no murmur Lungs: CTA bilateral, no rhonchi, no rales, no accessory muscle use Abdominal: soft, nondistended, RLQ and RUQ pain on deep palpation, no guarding, diminished bowel sounds Ext: muscle strength 5 out of 5 in all 4 extremities grossly, no gross muscle atrophy, no contractures, positive dorsalis pedis pulse bilateral, no edema Neuro: CN II-XI grossly intact, no gross focal neuro deficits Psych: Alert and oriented x 3, appropriate affect and mood Assessment/Plan: 64-year-old female with no history of abdominal surgery, depression, hypertension here as a transfer from [facility] due to abdominal pain. Evaluated as colonic obstruction with distention from fecal impaction. Transferred to our facility for higher level of care due to persistent hypotension. Found to have MICHAELLE and anemia on admission The patient is admitted with an anticipated greater than than 2 midnight stay for evaluation of abdominal pain secondary to colitis and infectious causes Active: #. Colitis, likely infectious cause, rule out other causes #. Lactic acidosis secondary to above, resolved Abdominal pelvis CT showed diffuse colitis with no associated obstruction, dilation of the gallbladder lumen and questionable gallbladder bladder wall thickening Empiric IV antibiotics with Ceftriaxone and metronidazole Continue with IV pain control and Zofran IV for nausea lactic acid 2.5 -> 1.8 N.p.o. for now Gallbladder ultrasound ordered Surgery consulted #. Acute Kidney Injury, prerenal #. Hypotension - BUN 35, creatinine 1.35 - CT abdomen pelvis shows no hydronephrosis -Monitor UO and BP -Avoid nephrotoxic agents -IVF 0.9 normal saline at 130 cc/h #. Normocytic anemia Hemoglobin 11.4, MCV 93.4 Will monitor CBC Chronic Conditions: #. Diabetes mellitus -Hemoglobin A1c ordered -Hold home medications -Glucose Accu-Cheks every 4 hours -Initiate Insulin sliding scale every 4 hours -Monitor for hypoglycemia #. Hypertension #. Depression Hold antihypertensives for now as BP is labile Hold NSAIDs and diuretics for now Continue with home Cymbalta, melatonin, Remeron if can handle oral medications. DVT ppx: Heparin subcu CODE STATUS: Full Discussed with: Patient Anticipated discharge place: Home Shirin Sellers MD PGY-1 Internal Medicine Dictation was produced using [employer] dictation software. please excuse any grammatical, word or spelling errors. Attestation: I have seen and examined this patient with my resident, assessment and plan discussed with the resident, agree with assessment and plan as written above. Dr. Gary Past Medical History Additional Past Medical History / Comment(s): Arrythmia History of Any Multi-Drug Resistant Organisms: None Reported Past Surgical History: Orthopedic Surgery Past Psychological History: No Psychological Hx Reported Smoking Status: Former smoker Past Alcohol Use History: None Reported Past Drug Use History: None Reported Medications and Allergies Home Medications Medication Instructions Recorded Confirmed Type Cetirizine HCl [Zyrtec] 10 mg PO DAILY 03/10/25 03/10/25 History DULoxetine HCL [Cymbalta] 60 mg PO BID 03/10/25 03/10/25 History Ergocalciferol (Vitamin D2) 1,250 mcg PO FR 03/10/25 03/10/25 History [Drisdol (GEQ) 1,250 MCG (50,000 IU)] HYDROcodone/APAP 10-325MG [[place] 1 tab PO Q8H PRN 03/10/25 03/10/25 History 10-325] Ibuprofen [Motrin] 800 mg PO Q8H 03/10/25 03/10/25 History Magnesium Oxide [Mag-Ox] 400 mg PO DAILY 03/10/25 03/10/25 History Melatonin 40 mg PO HS 03/10/25 03/10/25 History Mirtazapine [Remeron] 30 mg PO HS 03/10/25 03/10/25 History Pravastatin Sodium [Pravachol] 20 mg PO HS 03/10/25 03/10/25 History amLODIPine [Norvasc] 5 mg PO DAILY 03/10/25 03/10/25 History atenoloL [Tenormin] 100 mg PO HS 03/10/25 03/10/25 History hydroCHLOROthiazide [Hydrodiuril] 25 mg PO DAILY 03/10/25 03/10/25 History lisinopriL [Zestril] 40 mg PO DAILY 03/10/25 03/10/25 History metFORMIN HCL [Glucophage] 500 mg PO DAILY 03/10/25 03/10/25 History tiZANidine [Zanaflex] 4 mg PO Q8HR PRN 03/10/25 03/10/25 History Allergies Allergy/AdvReac Type Severity Reaction Status Date / Time Sulfa (Sulfonamide AdvReac Unknown Verified 05/22/24 20:11 Antibiotics) Physical Exam Vitals: Vital Signs Temp Pulse Resp BP Pulse Ox 03/10/25 06:27 65 18 97/60 97 03/10/25 06:00 64 18 85/58 97 03/10/25 04:45 57 L 24 100/84 97 03/10/25 04:00 58 L 20 89/54 95 03/10/25 03:30 59 L 20 93/68 94 L 03/10/25 01:38 97.8 F 55 L 18 108/69 94 L Intake and Output 03/09/25 03/10/25 03/10/25 22:59 06:59 14:59 Other: Weight 76.204 kg Results CBC & Chem 7: 03/10/25 02:28 03/10/25 02:28 Labs: Abnormal Lab Results - Last 24 Hours (Table) 03/10/25 03/10/25 03/10/25 Range/Units 02:28 02:28 02:28 WBC 13.52 H (4.50-10.00) 10*3/uL RBC 3.46 L (4.10-5.20) 10*6/uL Hgb 11.4 L (12.0-15.0) g/dL Hct 32.3 L (37.2-46.3) % MCH 32.9 H (27.0-32.0) pg MPV 9.1 L (9.5-12.2) fL Immature Gran # 0.05 H (0.00-0.04) 10*3/uL Neutrophils # 11.96 H (1.80-7.70) 10*3/uL Lymphocytes # 0.76 L (0.90-5.00) 10*3/uL Eosinophils # 0.01 L (0.04-0.35) 10*3/uL Sodium 131 L (137-145) mmol/L Chloride 96 L (98-107) mmol/L BUN 35 H (7-17) mg/dL Creatinine 1.35 H (0.52-1.04) mg/dL Glucose 100 H (74-99) mg/dL Plasma Lactic Acid Ga 2.5 H* (0.7-2.0) mmol/L AST 48 H (14-36) U/L Total Protein 5.4 L (6.3-8.2) g/dL Albumin 3.3 L (3.5-5.0) g/dL
[2025-03-10] MEDS: HEPARIN SODIUM,PORCINE 5,000 UNIT/ML 1 ML VIAL SQ SCH (16:31)
[2025-03-10 16:41] LABS: Glucose,Whole Blood 109 mg/dL (70-110)
[2025-03-10] MEDS: MAG HYDROX/AL HYDROX/SIMETH 30 ML, diphenhydrAMINE ELIXIR 75 MG, LIDOCAINE VISCOUS 2% 3... PO SCH (17:07)
[2025-03-10] MEDS: DULoxetine HCL 60 MG CAPSULE.DR PO SCH (20:08)
[2025-03-10] MEDS: MIRTAZAPINE 15 MG TAB PO SCH (20:08)
[2025-03-10] MEDS: MELATONIN 5 MG TABLET PO SCH (20:09)
[2025-03-10] MEDS: PRAVASTATIN SODIUM 20 MG TAB PO SCH (20:09)
[2025-03-10] MEDS: tiZANidine 4 MG TAB PO PRN (20:14)
[2025-03-10 21:02] LABS: Glucose,Whole Blood 120 mg/dL (70-110)
[2025-03-10 23:58] LABS: Appearance,Urine Clear (Clear); Bilirubin,Urine Negative (Negative); Blood,Urine Negative (Negative); Color,Urine Yellow; Glucose,Urine (UA) Negative (Negative); Ketones,Urine Negative (Negative); Leukocyte Esterase,Urine Negative (Negative); Nitrite,Urine Negative (Negative); PH, Urine 5.5 (5.0-8.0); Protein,Urine Trace (Negative); Specific Gravity,Urine 1.042 (1.001-1.035); Urobilinogen,Urine <2.0 mg/dL (<2.0)
[2025-03-11 06:03] LABS: Glucose,Whole Blood 102 mg/dL (70-110)
[2025-03-11 07:33] LABS: Basophils # (A) 0.05 10*3/uL (0.00-0.10); Basophils % (A) 0.4 %; Eosinophils # (A) 0.07 10*3/uL (0.04-0.35); Eosinophils % (A) 0.6 %; HCT 35.1 % (37.2-46.3); HGB 12.1 g/dL (12.0-15.0); Lymphocytes # (A) 0.92 10*3/uL (0.90-5.00); Lymphocytes % (A) 7.6 %; MCH 32.4 pg (27.0-32.0); MCHC 34.5 g/dL (32.0-37.0); MCV 94.1 fL (80.0-97.0); Mean Platelet Volume 9.4 fL (9.5-12.2); Monocytes % (A) 9.9 %; Neutrophils # (A) 9.75 10*3/uL (1.80-7.70); Neutrophils % (A) 80.7 %; Platelet Count 265 10*3/uL (140-440); RBC 3.73 10*6/uL (4.10-5.20); RDW 13.4 % (11.5-14.5); WBC 12.09 10*3/uL (4.50-10.00)
[2025-03-11 07:38] LABS: African American GFR (CKD) 81 (>60 ml/min/1.73 sqM); Anion Gap 7 mmol/L; Blood Urea Nitrogen 24 mg/dL (7-17); Calcium 7.9 mg/dL (8.4-10.2); Carbon Dioxide 19 mmol/L (22-30); Chloride 105 mmol/L (98-107); Glucose 100 mg/dL (74-99); Non-African American GFR(CKD) 70 (>60 ml/min/1.73 sqM); Potassium 3.2 mmol/L (3.5-5.1); Sodium 131 mmol/L (137-145)
[2025-03-11] MEDS: LORATADINE 10 MG TAB PO SCH (08:48)
[2025-03-11] MEDS: POTASSIUM CHLORIDE ER 20 MEQ TAB.ER PO STA ×2 (10:00→13:22)
--- NOTE | 2025-03-11 11:37 | P.PN ---
Subjective Progress Note Date: 03/11/25 SURGICAL PROGRESS NOTE CHIEF COMPLAINT: Abdominal pain HISTORY OF PRESENT ILLNESS: Patient continues to complain of abdominal pain. She denies any nausea or vomiting. She did have diarrhea this morning. Afebrile. WBC 13.5 down to 12 Patient seen and examined with Dr. Jacobson PHYSICAL EXAM: VITAL SIGNS: Reviewed. GENERAL: Well-developed in no acute distress. ABDOMEN: Soft. mildly distended. Diffuse tenderness NEUROLOGIC: Alert and oriented. Cranial nerves II through XII grossly intact. ASSESSMENT: 1. Abdominal pain 2. Bowel obstruction secondary to fecal impaction noted on CT scan from [facility]. Repeat CAT scan here shows no evidence of bowel obstruction but does report diffuse colitis. Patient had large bowel movements at [place]. 3. Colitis PLAN: - Abdominal x-ray ordered to follow-up on abdominal pain - Continue antibiotics - Continue clear liquid diet - Encourage patient to ambulate Physician Informatics Consultant note has been reviewed by physician. Signing provider agrees with the documented findings, assessment, and plan of care. Objective - Vital Signs Vital signs: Vital Signs Temp 99.3 F 03/11/25 08:40 Pulse 90 03/11/25 08:40 Resp 28 H 03/11/25 08:40 BP 103/64 03/11/25 08:40 Pulse Ox 94 L 03/11/25 08:40 FiO2 Intake & Output 03/10/25 03/11/25 03/11/25 18:59 06:59 18:59 Intake Total 200 480 Balance 200 480 Weight 76.204 kg 76.3 kg Intake: Oral 200 480 Other: Voiding Method Bedside Commode # Voids 1 2 # Bowel Movements 2 - Labs CBC & Chem 7: 03/11/25 06:22 03/11/25 06:22 Labs: Abnormal Lab Results - Last 24 Hours (Table) 03/10/25 03/10/25 03/10/25 Range/Units 14:24 21:00 23:24 WBC (4.50-10.00) 10*3/uL RBC (4.10-5.20) 10*6/uL Hct (37.2-46.3) % MCH (27.0-32.0) pg MPV (9.5-12.2) fL Immature Gran # (0.00-0.04) 10*3/uL Neutrophils # (1.80-7.70) 10*3/uL Monocytes # (0.20-1.00) 10*3/uL Sodium (137-145) mmol/L Potassium (3.5-5.1) mmol/L Carbon Dioxide (22-30) mmol/L BUN (7-17) mg/dL Glucose (74-99) mg/dL POC Glucose (mg/dL) 131 H 120 H (70-110) mg/dL Calcium (8.4-10.2) mg/dL Magnesium (1.6-2.3) mg/dL Ur Specific [place] 1.042 H (1.001-1.035) Urine Protein Trace H (Negative) 03/11/25 03/11/25 03/11/25 Range/Units 06:22 06:22 06:22 WBC 12.09 H (4.50-10.00) 10*3/uL RBC 3.73 L (4.10-5.20) 10*6/uL Hct 35.1 L (37.2-46.3) % MCH 32.4 H (27.0-32.0) pg MPV 9.4 L (9.5-12.2) fL Immature Gran # 0.10 H (0.00-0.04) 10*3/uL Neutrophils # 9.75 H (1.80-7.70) 10*3/uL Monocytes # 1.20 H (0.20-1.00) 10*3/uL Sodium 131 L (137-145) mmol/L Potassium 3.2 L (3.5-5.1) mmol/L Carbon Dioxide 19 L (22-30) mmol/L BUN 24 H (7-17) mg/dL Glucose 100 H (74-99) mg/dL POC Glucose (mg/dL) (70-110) mg/dL Calcium 7.9 L (8.4-10.2) mg/dL Magnesium 2.7 H (1.6-2.3) mg/dL Ur Specific [place] (1.001-1.035) Urine Protein (Negative)
[2025-03-11 11:46] LABS: Glucose,Whole Blood 134 mg/dL (70-110)
--- NOTE | 2025-03-11 12:29 | XR ---
EXAMINATION TYPE: XR chest 1V DATE OF EXAM: 03/11/2025 12:19 PM COMPARISON: 03/10/2025 CLINICAL INDICATION: Female, 64 years old with history of hypoxia, TECHNIQUE: XR chest 1V view(s) obtained. FINDINGS: The heart size is normal. The pulmonary vasculature is normal. The lungs are clear. IMPRESSION: 1. No acute pulmonary process. [facility], , 03/11/2025 12:26 PM
--- NOTE | 2025-03-11 12:38 | XR ---
EXAMINATION TYPE: XR abdomen 2V DATE OF EXAM: 03/11/2025 12:19 PM COMPARISON: 03/10/2025 CLINICAL INDICATION: Female, 64 years old with history of abdominal pain, TECHNIQUE: XR abdomen 2V view(s) obtained. FINDINGS: Multiple air-fluid levels are in the upper abdomen. Differential air-fluid levels are not identified. Small bowel loops and colon contain air-fluid levels. Consider gastroenteritis. Psoas margins are normal. No organomegaly is present. IMPRESSION: 1. Multiple scattered air-fluid levels within the upper abdomen. Correlate for gastroenteritis. [facility], , 03/11/2025 12:36 PM
[2025-03-11] MEDS: SODIUM CHLORIDE 0.9% 1,000 ML IV SCH (13:22)
[2025-03-11] MEDS: polyethylene glycoL 3350 17 GM POWD.PACK PO SCH (13:23)
[2025-03-11] MEDS: LACTULOSE 20 GM/30 ML CUP PO SCH (13:38)
--- NOTE | 2025-03-11 16:04 | P.PN ---
Subjective Progress Note Date: 03/11/25 Patient is a 64-year-old female with hypertension, depression, insomnia, no history of abdominal surgery here as transfer from [facility] due to severe abdominal pain. Patient reported that she has not had a bowel movement in the last 3 days and was experiencing worsening cramping abdominal pain with associated nausea in the last 5 days that was worse with movement and deep inhalations. She sought care in [facility] due to 2 days of severe abdominal pain with associated nausea and multiple epsiodes of vomiting that was dark but nonbloody. She underwent a CT scan of the abdomen and results showed colonic obstruction with distension due to impaction. Prior to transfer patient was given 2L IV fluid boluses, placed on Zosyn and vancomycin and did have a few bowel movements that watery but nonbloody during admission however patient was consistently hypotensive with an SBP of 80-90 and leukocytosis of 21.7 which led them to transfer to our facility for higher level of care. She denied fevers, hematochezia, jaundice, abdominal distention, bruising or bleeding. She says she usually has a BM 1-2 days. Diet consists of fruits like grapes, watermelon, apples, banannas. Has had a colonoscopy for cancer screening and was negative. On admission: Vitals: Temp 97.8, pulse rate 55, RR 18, BP 108/69, O2 saturation 94% on room air Labs: WBC 13.5, hemoglobin 11.4, MCV 93.4, platelet count 302,000, sodium 131, potassium 4, chloride 96, bicarb 22, BUN 35, creatinine 1.35 glucose 100, lactic acid 2.5, AST 48, calcium 8.7, lipase 68. Imaging: KUB x-ray showed no acute findings in the abdomen or pelvis. Abdominal pelvis CT showed diffuse colitis with no associated obstruction, dilation of the gallbladder lumen and questionable gallbladder bladder wall thickening. Chest x-ray showed no acute findings. 03/11/2025 patient seen and examined at bedside. No acute events overnight. Still having abdominal pain. Patient has had 2 bowel movements in the last 24 hours. Labs: WBC 12.09, hemoglobin 12, platelet count 2 65,000, sodium 131, potassium 3.2, bicarb 19, BUN 24, creatinine 0.8, glucose 100, calcium 7.9. C. difficile negative. Hemoglobin A1c 5.8 Imaging: Gallbladder ultrasound showed small amount of free fluid adjacent to the liver with hepatomegaly Review of systems: Pertinent positives and negatives as discussed in HPI, a complete review of systems was performed and all other systems are negative. Social history: Tobacco: Former smoker. Quit in 1988. 1-2ppd for 15 years. Alcohol: Former history of intake. Quit 20 years ago. Daily beer jugs 6-10 for 20 years. Recreational drugs: none Travel: none Physical examination: Vital signs reviewed General: non toxic, mild distress, appears at stated age, on room air Derm: no unusual rashes/lesions, warm Head: atraumatic, normocephalic, symmetric Eyes: EOMI, anicteric sclera, pupils equal round reactive to light ENT: Nose and ears atraumatic, NG tube noted Neck: No cervical lymphadenopathy, trachea midline, supple Mouth: no lip lesion, mucus membranes moist Cardiovascular: S1S2 reg, no murmur Lungs: CTA bilateral, no rhonchi, no rales, no accessory muscle use Abdominal: soft, nondistended, RLQ and RUQ pain on deep palpation, no guarding, diminished bowel sounds Ext: muscle strength 5 out of 5 in all 4 extremities grossly, no gross muscle atrophy, no contractures, positive dorsalis pedis pulse bilateral, no edema Neuro: CN II-XI grossly intact, no gross focal neuro deficits Psych: Alert and oriented x 3, appropriate affect and mood Assessment/Plan: 64-year-old female with no history of abdominal surgery, depression, hypertension here as a transfer from [facility] due to abdominal pain. Evaluated as colonic obstruction with distention from fecal impaction. Transferred to our facility for higher level of care due to persistent hypotension. Found to have MICHAELLE and anemia on admission The patient is admitted with an anticipated greater than than 2 midnight stay for evaluation of abdominal pain secondary to colitis and infectious causes Active: #. Colitis, likely infectious cause, rule out other causes #. Lactic acidosis secondary to above, resolved Abdominal pelvis CT showed diffuse colitis with no associated obstruction, dilation of the gallbladder lumen and questionable gallbladder bladder wall thickening Empiric IV antibiotics with Ceftriaxone and metronidazole Continue with IV pain control and Zofran IV for nausea lactic acid 2.5 -> 1.8 Clear liquids. N.p.o. at midnight. IVF 0.9 normal saline at 75 cc/h Gallbladder ultrasound showed small amount of free fluid adjacent to the liver with hepatomegaly Surgery consulted. HIDA scan ordered #. Acute Kidney Injury, prerenal, resolved #. Hypotension, resolved -BUN 24, Cr 0.87 - CT abdomen pelvis shows no hydronephrosis -Monitor UO and BP -Avoid nephrotoxic agents #. Hypokalemia Potassium 3.2 today Given potassium chloride 40 mEq p.o. Recheck potassium Check mag #. Normocytic anemia, resolved Hemoglobin 12.1 today Chronic Conditions: #. Diabetes mellitus -Hemoglobin A1c 5.8 -Hold home medications -Glucose Accu-Cheks ACHS -Initiate Insulin sliding scale ACHS -Monitor for hypoglycemia #. Hypertension #. Depression Restart norvasc in the AM Hold NSAIDs and diuretics for now Continue with home Cymbalta, melatonin, Remeron if can handle oral medications. DVT ppx: Heparin subcu CODE STATUS: Full Discussed with: Patient Anticipated discharge place: Home Shirin Sellers MD PGY-1 Internal Medicine Dictation was produced using [employer] dictation software. please excuse any grammatical, word or spelling errors. Attestation: I have seen and examined this patient with my resident, assessment and plan discussed with the resident, agree with assessment and plan as written above. Dr. Gary Objective - Vital Signs Vital signs: Vital Signs Temp 97.4 F L 03/11/25 03:00 Pulse 82 03/11/25 03:00 Resp 18 03/11/25 03:00 BP 109/68 03/11/25 03:00 Pulse Ox 93 L 03/11/25 03:00 FiO2 Intake & Output 03/10/25 03/11/25 03/11/25 18:59 06:59 18:59 Intake Total 200 480 Balance 200 480 Weight 76.204 kg 76.3 kg Intake: Oral 200 480 Other: Voiding Method Bedside Commode # Voids 1 2 # Bowel Movements 2 - Labs CBC & Chem 7: 03/11/25 06:22 03/11/25 06:22 Labs: Abnormal Lab Results - Last 24 Hours (Table) 03/10/25 03/10/25 03/10/25 Range/Units 14:24 21:00 23:24 WBC (4.50-10.00) 10*3/uL RBC (4.10-5.20) 10*6/uL Hct (37.2-46.3) % MCH (27.0-32.0) pg MPV (9.5-12.2) fL Immature Gran # (0.00-0.04) 10*3/uL Sodium (137-145) mmol/L Potassium (3.5-5.1) mmol/L Carbon Dioxide (22-30) mmol/L BUN (7-17) mg/dL Glucose (74-99) mg/dL POC Glucose (mg/dL) 131 H 120 H (70-110) mg/dL Calcium (8.4-10.2) mg/dL Ur Specific [place] 1.042 H (1.001-1.035) Urine Protein Trace H (Negative) 03/11/25 03/11/25 Range/Units 06:22 06:22 WBC 12.09 H (4.50-10.00) 10*3/uL RBC 3.73 L (4.10-5.20) 10*6/uL Hct 35.1 L (37.2-46.3) % MCH 32.4 H (27.0-32.0) pg MPV 9.4 L (9.5-12.2) fL Immature Gran # 0.10 H (0.00-0.04) 10*3/uL Sodium 131 L (137-145) mmol/L Potassium 3.2 L (3.5-5.1) mmol/L Carbon Dioxide 19 L (22-30) mmol/L BUN 24 H (7-17) mg/dL Glucose 100 H (74-99) mg/dL POC Glucose (mg/dL) (70-110) mg/dL Calcium 7.9 L (8.4-10.2) mg/dL Ur Specific [place] (1.001-1.035) Urine Protein (Negative)
[2025-03-11 16:46] LABS: Glucose,Whole Blood 100 mg/dL (70-110)
[2025-03-11 20:01] LABS: Glucose,Whole Blood 94 mg/dL (70-110)
[2025-03-11] MEDS: KETOROLAC 15 MG/ML 1 ML VIAL IVP PRN (20:24)
[2025-03-12 06:23] LABS: Glucose,Whole Blood 81 mg/dL (70-110)
[2025-03-12] MEDS: amLODIPine 5 MG TAB PO SCH (09:50)
--- NOTE | 2025-03-12 10:38 | NM ---
EXAMINATION TYPE: NM hepatobiliary w CCK DATE OF EXAM: 03/12/2025 COMPARISON: NONE INDICATION: Abdominal pain TECHNIQUE: After the intravenous administration of 5.4 mCi Tc 99m Mebrofenin hepatobiliary scintigrap hy is performed. Images were obtained immediately post injection. FINDINGS: There is prompt uptake and excretion of radiotracer by the liver. Extrahepatic ducts are identified at 8 minutes. The gallbladder is visualized within 40 to minutes. Small bowel activity is noted within 10 minutes. At one hour CCK was administered, patient was injected with 1.6 mcg of Kinevac, and gallbladder eject ion fraction is calculated at 28 %, which is low. (Normal >35% and <80%.). IMPRESSION: 1. Biliary hypokinesia with a low ejection fraction of 28%. [facility], , 03/12/2025 10:36 AM
[2025-03-12 11:36] LABS: HCT 31.7 % (37.2-46.3); HGB 10.7 g/dL (12.0-15.0); MCH 32.7 pg (27.0-32.0); MCHC 33.8 g/dL (32.0-37.0); MCV 96.9 fL (80.0-97.0); Mean Platelet Volume 9.3 fL (9.5-12.2); Platelet Count 220 10*3/uL (140-440); RBC 3.27 10*6/uL (4.10-5.20); WBC 11.79 10*3/uL (4.50-10.00)
[2025-03-12 11:43] LABS: African American GFR (CKD) >90 (>60 ml/min/1.73 sqM); Anion Gap 9 mmol/L; Blood Urea Nitrogen 18 mg/dL (7-17); Calcium 8.4 mg/dL (8.4-10.2); Carbon Dioxide 19 mmol/L (22-30); Chloride 108 mmol/L (98-107); Glucose 76 mg/dL (74-99); Non-African American GFR(CKD) >90 (>60 ml/min/1.73 sqM); Potassium 3.6 mmol/L (3.5-5.1); Sodium 136 mmol/L (137-145)
[2025-03-12 11:54] LABS: Glucose,Whole Blood 66 mg/dL (70-110)
[2025-03-12 12:20] LABS: Glucose,Whole Blood 76 mg/dL (70-110)
[2025-03-12 12:36] LABS: Basophils # (M) 0.12 k/uL (0-0.2); Lymphocytes # (M) 0.71 k/uL (1.0-4.8); Monocytes # (M) 0.94 k/uL (0-1.0); Neutrophils # (M) 10.02 k/uL (1.3-7.7); Neutrophils % (M) 85 %; Nucleated Red Blood Cells 0 /100 WBC (0-0); Total Cells Counted 100
[2025-03-12 13:58] LABS: C-ANCA <1:20 Titer (<1:20)
[2025-03-12 17:26] LABS: Glucose,Whole Blood 63 mg/dL (70-110)
--- NOTE | 2025-03-12 17:44 | P.PN ---
Subjective Progress Note Date: 03/12/25 Patient is a 64-year-old female with hypertension, depression, insomnia, no history of abdominal surgery here as transfer from [facility] due to severe abdominal pain. Patient reported that she has not had a bowel movement in the last 3 days and was experiencing worsening cramping abdominal pain with associated nausea in the last 5 days that was worse with movement and deep inhalations. She sought care in [facility] due to 2 days of severe abdominal pain with associated nausea and multiple epsiodes of vomiting that was dark but nonbloody. She underwent a CT scan of the abdomen and results showed colonic obstruction with distension due to impaction. Prior to transfer patient was given 2L IV fluid boluses, placed on Zosyn and vancomycin and did have a few bowel movements that watery but nonbloody during admission however patient was consistently hypotensive with an SBP of 80-90 and leukocytosis of 21.7 which led them to transfer to our facility for higher level of care. She denied fevers, hematochezia, jaundice, abdominal distention, bruising or bleeding. She says she usually has a BM 1-2 days. Diet consists of fruits like grapes, watermelon, apples, banannas. Has had a colonoscopy for cancer screening and was negative. On admission: Vitals: Temp 97.8, pulse rate 55, RR 18, BP 108/69, O2 saturation 94% on room air Labs: WBC 13.5, hemoglobin 11.4, MCV 93.4, platelet count 302,000, sodium 131, potassium 4, chloride 96, bicarb 22, BUN 35, creatinine 1.35 glucose 100, lactic acid 2.5, AST 48, calcium 8.7, lipase 68. Imaging: KUB x-ray showed no acute findings in the abdomen or pelvis. Abdominal pelvis CT showed diffuse colitis with no associated obstruction, dilation of the gallbladder lumen and questionable gallbladder bladder wall thickening. Chest x-ray showed no acute findings. 03/11/2025 patient seen and examined at bedside. No acute events overnight. Still having abdominal pain. Patient has had 2 bowel movements in the last 24 hours. Labs: WBC 12.09, hemoglobin 12, platelet count 2 65,000, sodium 131, potassium 3.2, bicarb 19, BUN 24, creatinine 0.8, glucose 100, calcium 7.9. C. difficile negative. Hemoglobin A1c 5.8 Imaging: Gallbladder ultrasound showed small amount of free fluid adjacent to the liver with hepatomegaly 03/12/2025 patient seen and examined at bedside. No acute events overnight. Had 5 bowel movements no blood no bile small caliber stools overnight. Still having abdominal pain. Labs: WBC 11.7, hemoglobin 10.7, MCV 96.9, platelet count 220,000, sodium 136, potassium 3.6, bicarb 19, BUN 18, creatinine 0.7, glucose 76, calcium 8.4 Imaging: HIDA scan biliary hypokinesia with a low ejection fraction of 28% Review of systems: Pertinent positives and negatives as discussed in HPI, a complete review of systems was performed and all other systems are negative. Social history: Tobacco: Former smoker. Quit in 1988. 1-2ppd for 15 years. Alcohol: Former history of intake. Quit 20 years ago. Daily beer jugs 6-10 for 20 years. Recreational drugs: no history of illicit or recreational drugs Travel: none Physical examination: Vital signs reviewed General: non toxic, mild distress, appears at stated age, on room air Derm: no unusual rashes/lesions, warm Head: atraumatic, normocephalic, symmetric Eyes: EOMI, anicteric sclera, pupils equal round reactive to light ENT: Nose and ears atraumatic, NG tube noted Neck: No cervical lymphadenopathy, trachea midline, supple Mouth: no lip lesion, mucus membranes moist Cardiovascular: S1S2 reg, no murmur Lungs: CTA bilateral, no rhonchi, no rales, no accessory muscle use Abdominal: soft, nondistended, RLQ and RUQ pain on deep palpation, no guarding, diminished bowel sounds Ext: muscle strength 5 out of 5 in all 4 extremities grossly, no gross muscle atrophy, no contractures, positive dorsalis pedis pulse bilateral, no edema Neuro: CN II-XI grossly intact, no gross focal neuro deficits Psych: Alert and oriented x 3, appropriate affect and mood Assessment/Plan: 64-year-old female with no history of abdominal surgery, depression, hypertension here as a transfer from [facility] due to abdominal pain. Evaluated as colonic obstruction with distention from fecal impaction. Transferred to our facility for higher level of care due to persistent hypotension. Found to have MICHAELLE and anemia on admission The patient is admitted with an anticipated greater than than 2 midnight stay for evaluation of abdominal pain secondary to colitis and infectious causes Active: #. Fecal impaction, possibly secondary to ileus #. Colitis, autoimmune and infectious causes ruled out, likely secondary to above #. Biliary hypokinesia on HIDA scan #. Lactic acidosis secondary to above, resolved Abdominal pelvis CT showed diffuse colitis with no associated obstruction, dilation of the gallbladder lumen and questionable gallbladder bladder wall thickening Gallbladder ultrasound showed small amount of free fluid adjacent to the liver with hepatomegaly HIDA scan biliary hypokinesia with a low ejection fraction of 28% Empiric IV antibiotics with Ceftriaxone and metronidazole Continue with IV pain control and Zofran IV for nausea lactic acid 2.5 -> 1.8 Clear liquids. Advance as tolerated Continue with Lactulose and Miralax IVF 0.9 normal saline at 75 cc/h Surgery consulted. #. Acute Kidney Injury, prerenal, resolved #. Hypotension, resolved -BUN 24, Cr 0.87 - CT abdomen pelvis shows no hydronephrosis -Avoid nephrotoxic agents #. Hypokalemia, resolved Potassium 3.6 today #. Normocytic anemia, stable Hemoglobin 10.7 today Chronic Conditions: #. Diabetes mellitus -Hemoglobin A1c 5.8 -Hold home medications -Glucose Accu-Cheks ACHS -Initiate Insulin sliding scale ACHS -Monitor for hypoglycemia #. Hypertension #. Depression Hold NSAIDs and diuretics for now Continue with home Norvasc, Cymbalta, melatonin, Remeron if can handle oral medications. DVT ppx: Heparin subcu CODE STATUS: Full Discussed with: Patient Anticipated discharge place: Home Shirin Sellers MD PGY-1 Internal Medicine Dictation was produced using [employer] dictation software. please excuse any grammatical, word or spelling errors. Objective - Vital Signs Vital signs: Vital Signs Temp 97.4 F L 03/12/25 04:40 Pulse 85 03/12/25 04:40 Resp 18 03/12/25 04:40 BP 127/72 03/12/25 04:40 Pulse Ox 98 03/12/25 04:40 FiO2 Intake & Output 03/11/25 03/12/25 03/12/25 18:59 06:59 18:59 Other: Voiding Method Bedside Commode # Voids 3 1 # Bowel Movements 1 1 - Labs CBC & Chem 7: 03/12/25 11:13 03/12/25 11:13 Labs: Abnormal Lab Results - Last 24 Hours (Table) 03/11/25 03/11/25 03/11/25 Range/Units 06:22 06:22 11:44 Neutrophils # 9.75 H (1.80-7.70) 10*3/uL Monocytes # 1.20 H (0.20-1.00) 10*3/uL POC Glucose (mg/dL) 134 H (70-110) mg/dL Magnesium 2.7 H (1.6-2.3) mg/dL Microbiology - Last 24 Hours (Table) 03/10/25 11:39 Blood Culture - Preliminary Blood
[2025-03-12 17:46] LABS: Glucose,Whole Blood 71 mg/dL (70-110)
[2025-03-12 20:15] LABS: Glucose,Whole Blood 97 mg/dL (70-110)
--- NOTE | 2025-03-13 04:54 | PN ---
PROGRESS NOTE DATE OF SERVICE: 03/12/2025 CHIEF COMPLAINT: Abdominal pain. Surgical service following in regard to the patient's abdominal pain. She is having diarrhea type stools. She still complains of diffuse abdominal pain. Denies any nausea or vomiting. She is tolerating the clear liquids. HIDA scan completed, had reported a hypokinetic gallbladder. PHYSICAL EXAM: ABDOMEN: Soft. Diffuse tenderness with palpation. ASSESSMENT: 1. Abdominal pain. 2. Colitis. 3. Ileus. 4. Chronic cholecystitis. PLAN: Continue antibiotics. Continue clear liquid diet. Continue to monitor. Laparoscopic cholecystectomy when patient is feeling better. MMODL / IJN: [id number] /
[2025-03-13 06:15] LABS: Glucose,Whole Blood 77 mg/dL (70-110)
[2025-03-13 07:39] LABS: HCT 27.1 % (37.2-46.3); HGB 9.4 g/dL (12.0-15.0); MCH 32.2 pg (27.0-32.0); MCHC 34.7 g/dL (32.0-37.0); MCV 92.8 fL (80.0-97.0); Mean Platelet Volume 9.4 fL (9.5-12.2); Platelet Count 231 10*3/uL (140-440); RBC 2.92 10*6/uL (4.10-5.20); RDW 13.7 % (11.5-14.5); WBC 10.64 10*3/uL (4.50-10.00)
[2025-03-13 07:48] LABS: African American GFR (CKD) >90 (>60 ml/min/1.73 sqM); Anion Gap 7 mmol/L; Blood Urea Nitrogen 11 mg/dL (7-17); Carbon Dioxide 21 mmol/L (22-30); Chloride 109 mmol/L (98-107); Glucose 73 mg/dL (74-99); Non-African American GFR(CKD) >90 (>60 ml/min/1.73 sqM); Sodium 137 mmol/L (137-145)
[2025-03-13 09:24] LABS: Band Neutrophils % 1 %; Eosinophils # (M) 0.11 k/uL (0-0.7); Lymphocytes # (M) 1.06 k/uL (1.0-4.8); Monocytes # (M) 0.85 k/uL (0-1.0); Neutrophils # (M) 8.61 k/uL (1.3-7.7); Neutrophils % (M) 80 %; Nucleated Red Blood Cells 0 /100 WBC (0-0); Total Cells Counted 100
[2025-03-13 09:25] LABS: Anisocytosis (M) Present
[2025-03-13] MEDS: POTASSIUM CHLORIDE ER 20 MEQ TAB.ER PO STA ×3 (10:18→18:35)
[2025-03-13] MEDS: POTASSIUM CHLORIDE 10 MEQ in WATER FOR INJECTION 1 100ML.BAG IVPB SCH (10:20)
[2025-03-13 11:52] LABS: Glucose,Whole Blood 102 mg/dL (70-110)
--- NOTE | 2025-03-13 12:33 | P.PN ---
Subjective Progress Note Date: 03/13/25 SURGICAL PROGRESS NOTE CHIEF COMPLAINT: Abdominal pain HISTORY OF PRESENT ILLNESS: Patient reports some improvement in her abdominal pain today. She denies any nausea or vomiting. She is having multiple episodes of diarrhea. HIDA scan had reported biliary hypokinesia with low EF of 28%. Patient seen and examined with Dr. Jacobson PHYSICAL EXAM: VITAL SIGNS: Reviewed. GENERAL: Well-developed in no acute distress. ABDOMEN: Soft. Nondistended. Diffuse tenderness NEUROLOGIC: Alert and oriented. Cranial nerves II through XII grossly intact. ASSESSMENT: 1. Abdominal pain 2. Bowel obstruction secondary to fecal impaction noted on CT scan from [facility] [place]. Repeat CAT scan here shows no evidence of bowel obstruction but does report diffuse colitis. Patient had large bowel movements at [place]. 3. Colitis 4. Chronic cholecystitis with biliary hypokinesia noted on HIDA scan PLAN: -Discontinue lactulose due to diarrhea -Advance diet to low-fat -Recommend outpatient cholecystectomy -Continue antibiotics Physician [employer] Professor note has been reviewed by physician. Signing provider agrees with the documented findings, assessment, and plan of care. Objective - Vital Signs Vital signs: Vital Signs Temp 99.1 F 03/13/25 09:23 Pulse 98 03/13/25 11:54 Resp 16 03/13/25 11:54 BP 127/83 03/13/25 11:54 Pulse Ox 96 03/13/25 11:54 FiO2 Intake & Output 03/12/25 03/13/25 03/13/25 18:59 06:59 18:59 Intake Total 480 1260 240 Balance 480 1260 240 Weight 86.86 kg Intake: Oral 480 1260 240 Other: Voiding Method Bedside Commode Bedside Commode # Voids 1 1 - Labs CBC & Chem 7: 03/13/25 06:55 03/13/25 06:55 Labs: Abnormal Lab Results - Last 24 Hours (Table) 03/12/25 03/12/25 03/13/25 Range/Units 11:13 17:24 06:55 WBC 10.64 H (4.50-10.00) 10*3/uL RBC 2.92 L (4.10-5.20) 10*6/uL Hgb 9.4 L (12.0-15.0) g/dL Hct 27.1 L (37.2-46.3) % MCH 32.2 H (27.0-32.0) pg MPV 9.4 L (9.5-12.2) fL Immature Gran # 0.10 H (0.00-0.04) 10*3/uL Neutrophils # (Manual) 10.02 H 8.61 H (1.3-7.7) k/uL Lymphocytes # (Manual) 0.71 L (1.0-4.8) k/uL Potassium (3.5-5.1) mmol/L Chloride (98-107) mmol/L Carbon Dioxide (22-30) mmol/L Glucose (74-99) mg/dL POC Glucose (mg/dL) 63 L (70-110) mg/dL Calcium (8.4-10.2) mg/dL 03/13/25 Range/Units 06:55 WBC (4.50-10.00) 10*3/uL RBC (4.10-5.20) 10*6/uL Hgb (12.0-15.0) g/dL Hct (37.2-46.3) % MCH (27.0-32.0) pg MPV (9.5-12.2) fL Immature Gran # (0.00-0.04) 10*3/uL Neutrophils # (Manual) (1.3-7.7) k/uL Lymphocytes # (Manual) (1.0-4.8) k/uL Potassium 3.0 L (3.5-5.1) mmol/L Chloride 109 H (98-107) mmol/L Carbon Dioxide 21 L (22-30) mmol/L Glucose 73 L (74-99) mg/dL POC Glucose (mg/dL) (70-110) mg/dL Calcium 8.0 L (8.4-10.2) mg/dL Microbiology - Last 24 Hours (Table) 03/10/25 11:39 Blood Culture - Preliminary Blood
--- NOTE | 2025-03-13 15:16 | P.PN ---
Subjective Progress Note Date: 03/13/25 Patient is a 64-year-old female with hypertension, depression, insomnia, no history of abdominal surgery here as transfer from [facility] due to severe abdominal pain. Patient reported that she has not had a bowel movement in the last 3 days and was experiencing worsening cramping abdominal pain with associated nausea in the last 5 days that was worse with movement and deep inhalations. She sought care in [facility] due to 2 days of severe abdominal pain with associated nausea and multiple epsiodes of vomiting that was dark but nonbloody. She underwent a CT scan of the abdomen and results showed colonic obstruction with distension due to impaction. Prior to transfer patient was given 2L IV fluid boluses, placed on Zosyn and vancomycin and did have a few bowel movements that watery but nonbloody during admission however patient was consistently hypotensive with an SBP of 80-90 and leukocytosis of 21.7 which led them to transfer to our facility for higher level of care. She denied fevers, hematochezia, jaundice, abdominal distention, bruising or bleeding. She says she usually has a BM 1-2 days. Diet consists of fruits like grapes, watermelon, apples, banannas. Has had a colonoscopy for cancer screening and was negative. On admission: Vitals: Temp 97.8, pulse rate 55, RR 18, BP 108/69, O2 saturation 94% on room air Labs: WBC 13.5, hemoglobin 11.4, MCV 93.4, platelet count 302,000, sodium 131, potassium 4, chloride 96, bicarb 22, BUN 35, creatinine 1.35 glucose 100, lactic acid 2.5, AST 48, calcium 8.7, lipase 68. Imaging: KUB x-ray showed no acute findings in the abdomen or pelvis. Abdominal pelvis CT showed diffuse colitis with no associated obstruction, dilation of the gallbladder lumen and questionable gallbladder bladder wall thickening. Chest x-ray showed no acute findings. 03/11/2025 patient seen and examined at bedside. No acute events overnight. Still having abdominal pain. Patient has had 2 bowel movements in the last 24 hours. Labs: WBC 12.09, hemoglobin 12, platelet count 2 65,000, sodium 131, potassium 3.2, bicarb 19, BUN 24, creatinine 0.8, glucose 100, calcium 7.9. C. difficile negative. Hemoglobin A1c 5.8 Imaging: Gallbladder ultrasound showed small amount of free fluid adjacent to the liver with hepatomegaly 03/12/2025 patient seen and examined at bedside. No acute events overnight. Had 5 bowel movements no blood no bile small caliber stools overnight. Still having abdominal pain. Labs: WBC 11.7, hemoglobin 10.7, MCV 96.9, platelet count 220,000, sodium 136, potassium 3.6, bicarb 19, BUN 18, creatinine 0.7, glucose 76, calcium 8.4 Imaging: HIDA scan biliary hypokinesia with a low ejection fraction of 28% 03/13/2025 patient seen and examined at bedside. Oral intake and pain has improved. Having watery stool. Labs: WBC 10.6, hemoglobin 9.4, MCV 92.8, platelet count 231,000, sodium 137, chloride 109, bicarb 21, BUN 11, creatinine 0.61, glucose 73, magnesium 1.9 Review of systems: Pertinent positives and negatives as discussed in HPI, a complete review of systems was performed and all other systems are negative. Social history: Tobacco: Former smoker. Quit in 1988. 1-2ppd for 15 years. Alcohol: Former history of intake. Quit 20 years ago. Daily beer jugs 6-10 for 20 years. Recreational drugs: no history of illicit or recreational drugs Travel: none Physical examination: Vital signs reviewed General: non toxic, mild distress, appears at stated age, on room air Derm: no unusual rashes/lesions, warm Head: atraumatic, normocephalic, symmetric Eyes: EOMI, anicteric sclera, pupils equal round reactive to light ENT: Nose and ears atraumatic, NG tube noted Neck: No cervical lymphadenopathy, trachea midline, supple Mouth: no lip lesion, mucus membranes moist Cardiovascular: S1S2 reg, no murmur Lungs: CTA bilateral, no rhonchi, no rales, no accessory muscle use Abdominal: soft, nondistended, RLQ and RUQ, LLQ pain on light palpation, no guarding, improved bowel sounds Ext: muscle strength 5 out of 5 in all 4 extremities grossly, no gross muscle atrophy, no contractures, positive dorsalis pedis pulse bilateral, no edema Neuro: CN II-XI grossly intact, no gross focal neuro deficits Psych: Alert and oriented x 3, appropriate affect and mood Assessment/Plan: 64-year-old female with no history of abdominal surgery, d epression, hypertension here as a transfer from [facility] due to abdominal pain. Evaluated as colonic obstruction with distention from fecal impaction. Transferred to our facility for higher level of care due to persistent hypotension. Found to have MICHAELLE and anemia on admission The patient is admitted with an anticipated greater than than 2 midnight stay for evaluation of abdominal pain secondary to colitis and infectious causes Active: #. Fecal impaction, secondary to ileus #. Colitis, autoimmune and infectious causes ruled out, likely secondary to above #. Chronic cholecystits with Biliary hypokinesia on HIDA scan #. Lactic acidosis secondary to above, resolved Abdominal pelvis CT showed diffuse colitis with no associated obstruction, dilation of the gallbladder lumen and questionable gallbladder bladder wall thickening Gallbladder ultrasound showed small amount of free fluid adjacent to the liver with hepatomegaly HIDA scan biliary hypokinesia with a low ejection fraction of 28% Empiric IV antibiotics with Ceftriaxone and metronidazole Continue with IV pain control and Zofran IV for nausea Low fat diet. Advance as tolerated Lactulose and Miralax discontinued by surgery Discontinue IVF Surgery consulted. Planned lap north outpatient #. Acute Kidney Injury, prerenal, resolved #. Hypotension, resolved -BUN 24, Cr 0.87 - CT abdomen pelvis shows no hydronephrosis -Avoid nephrotoxic agents #. Hypokalemia Potassium 3.0 Order potassium chloride 60 mEq p.o today recheck potassium check Mag. will replete if low #. Normocytic anemia, stable Hemoglobin 9.4 today Chronic Conditions: #. Diabetes mellitus -Hemoglobin A1c 5.8 -Hold home medications -Glucose Accu-Cheks ACHS -Initiate Insulin sliding scale ACHS -Monitor for hypoglycemia #. Hypertension #. Depression Hold NSAIDs and diuretics for now Continue with home Norvasc, Cymbalta, melatonin, Remeron if can handle oral medications. DVT ppx: Heparin subcu CODE STATUS: Full Discussed with: Patient Anticipated discharge place: Home Shirin Sellers MD PGY-1 Internal Medicine Dictation was produced using [employer] dictation software. please excuse any grammatical, word or spelling errors. Objective - Vital Signs Vital signs: Vital Signs Temp 98.2 F 03/12/25 23:40 Pulse 75 03/13/25 04:00 Resp 16 03/13/25 04:00 BP 139/82 03/13/25 04:00 Pulse Ox 94 L 03/13/25 04:00 FiO2 Intake & Output 03/12/25 03/13/25 03/13/25 18:59 06:59 18:59 Intake Total 480 1260 Balance 480 1260 Weight 86.86 kg Intake: Oral 480 1260 Other: Voiding Method Bedside Commode Bedside Commode # Voids 1 1 - Labs CBC & Chem 7: 03/13/25 06:55 03/13/25 06:55 Labs: Abnormal Lab Results - Last 24 Hours (Table) 03/12/25 03/12/25 03/12/25 Range/Units 11:13 11:13 11:53 WBC 11.79 H (4.50-10.00) 10*3/uL RBC 3.27 L (4.10-5.20) 10*6/uL Hgb 10.7 L (12.0-15.0) g/dL Hct 31.7 L (37.2-46.3) % MCH 32.7 H (27.0-32.0) pg MPV 9.3 L (9.5-12.2) fL Immature Gran # 0.05 H (0.00-0.04) 10*3/uL Neutrophils # (Manual) 10.02 H (1.3-7.7) k/uL Lymphocytes # (Manual) 0.71 L (1.0-4.8) k/uL Sodium 136 L (137-145) mmol/L Potassium (3.5-5.1) mmol/L Chloride 108 H (98-107) mmol/L Carbon Dioxide 19 L (22-30) mmol/L BUN 18 H (7-17) mg/dL Glucose (74-99) mg/dL POC Glucose (mg/dL) 66 L (70-110) mg/dL Calcium (8.4-10.2) mg/dL 03/12/25 03/13/25 Range/Units 17:24 06:55 WBC (4.50-10.00) 10*3/uL RBC (4.10-5.20) 10*6/uL Hgb (12.0-15.0) g/dL Hct (37.2-46.3) % MCH (27.0-32.0) pg MPV (9.5-12.2) fL Immature Gran # (0.00-0.04) 10*3/uL Neutrophils # (Manual) (1.3-7.7) k/uL Lymphocytes # (Manual) (1.0-4.8) k/uL Sodium (137-145) mmol/L Potassium 3.0 L (3.5-5.1) mmol/L Chloride 109 H (98-107) mmol/L Carbon Dioxide 21 L (22-30) mmol/L BUN (7-17) mg/dL Glucose 73 L (74-99) mg/dL POC Glucose (mg/dL) 63 L (70-110) mg/dL Calcium 8.0 L (8.4-10.2) mg/dL Microbiology - Last 24 Hours (Table) 03/10/25 11:39 Blood Culture - Preliminary Blood
[2025-03-13 16:32] LABS: Glucose,Whole Blood 82 mg/dL (70-110)
[2025-03-13 20:27] LABS: Glucose,Whole Blood 76 mg/dL (70-110)
[2025-03-14 06:05] LABS: Glucose,Whole Blood 74 mg/dL (70-110)
[2025-03-14 07:33] LABS: Basophils # (A) 0.09 10*3/uL (0.00-0.10); Basophils % (A) 0.9 %; Eosinophils # (A) 0.08 10*3/uL (0.04-0.35); Eosinophils % (A) 0.8 %; HCT 29.6 % (37.2-46.3); HGB 10.2 g/dL (12.0-15.0); Lymphocytes # (A) 1.12 10*3/uL (0.90-5.00); Lymphocytes % (A) 11.4 %; MCH 32.4 pg (27.0-32.0); MCHC 34.5 g/dL (32.0-37.0); Mean Platelet Volume 9.1 fL (9.5-12.2); Monocytes # (A) 0.66 10*3/uL (0.20-1.00); Monocytes % (A) 6.7 %; Neutrophils # (A) 7.48 10*3/uL (1.80-7.70); Neutrophils % (A) 76.5 %; Platelet Count 252 10*3/uL (140-440); RBC 3.15 10*6/uL (4.10-5.20); RDW 13.9 % (11.5-14.5); WBC 9.79 10*3/uL (4.50-10.00)
[2025-03-14 07:48] LABS: African American GFR (CKD) >90 (>60 ml/min/1.73 sqM); Anion Gap 9 mmol/L; Blood Urea Nitrogen 8 mg/dL (7-17); Calcium 8.2 mg/dL (8.4-10.2); Carbon Dioxide 16 mmol/L (22-30); Chloride 113 mmol/L (98-107); Glucose 73 mg/dL (74-99); Non-African American GFR(CKD) >90 (>60 ml/min/1.73 sqM); Potassium 3.8 mmol/L (3.5-5.1); Sodium 138 mmol/L (137-145)
[2025-03-14 11:47] LABS: Glucose,Whole Blood 73 mg/dL (70-110)
[2025-03-14] MEDS ORDERED: ONDANSETRON ODT 4 MG TAB PO PRN (15:46)
--- NOTE | 2025-03-14 15:49 | P.PN ---
Subjective Progress Note Date: 03/14/25 Patient is a 64-year-old female with hypertension, depression, insomnia, no history of abdominal surgery here as transfer from [facility] due to severe abdominal pain. Patient reported that she has not had a bowel movement in the last 3 days and was experiencing worsening cramping abdominal pain with associated nausea in the last 5 days that was worse with movement and deep inhalations. She sought care in [facility] due to 2 days of severe abdominal pain with associated nausea and multiple epsiodes of vomiting that was dark but nonbloody. She underwent a CT scan of the abdomen and results showed colonic obstruction with distension due to impaction. Prior to transfer patient was given 2L IV fluid boluses, placed on Zosyn and vancomycin and did have a few bowel movements that watery but nonbloody during admission however patient was consistently hypotensive with an SBP of 80-90 and leukocytosis of 21.7 which led them to transfer to our facility for higher level of care. She denied fevers, hematochezia, jaundice, abdominal distention, bruising or bleeding. She says she usually has a BM 1-2 days. Diet consists of fruits like grapes, watermelon, apples, banannas. Has had a colonoscopy for cancer screening and was negative. On admission: Vitals: Temp 97.8, pulse rate 55, RR 18, BP 108/69, O2 saturation 94% on room air Labs: WBC 13.5, hemoglobin 11.4, MCV 93.4, platelet count 302,000, sodium 131, potassium 4, chloride 96, bicarb 22, BUN 35, creatinine 1.35 glucose 100, lactic acid 2.5, AST 48, calcium 8.7, lipase 68. Imaging: KUB x-ray showed no acute findings in the abdomen or pelvis. Abdominal pelvis CT showed diffuse colitis with no associated obstruction, dilation of the gallbladder lumen and questionable gallbladder bladder wall thickening. Chest x-ray showed no acute findings. 03/11/2025 patient seen and examined at bedside. No acute events overnight. Still having abdominal pain. Patient has had 2 bowel movements in the last 24 hours. Labs: WBC 12.09, hemoglobin 12, platelet count 2 65,000, sodium 131, potassium 3.2, bicarb 19, BUN 24, creatinine 0.8, glucose 100, calcium 7.9. C. difficile negative. Hemoglobin A1c 5.8 Imaging: Gallbladder ultrasound showed small amount of free fluid adjacent to the liver with hepatomegaly 03/12/2025 patient seen and examined at bedside. No acute events overnight. Had 5 bowel movements no blood no bile small caliber stools overnight. Still having abdominal pain. Labs: WBC 11.7, hemoglobin 10.7, MCV 96.9, platelet count 220,000, sodium 136, potassium 3.6, bicarb 19, BUN 18, creatinine 0.7, glucose 76, calcium 8.4 Imaging: HIDA scan biliary hypokinesia with a low ejection fraction of 28% 03/13/2025 patient seen and examined at bedside. Oral intake and pain has improved. Having watery stool. Labs: WBC 10.6, hemoglobin 9.4, MCV 92.8, platelet count 231,000, sodium 137, chloride 109, bicarb 21, BUN 11, creatinine 0.61, glucose 73, magnesium 1.9 03/14/2025 patient seen and examined at bedside. No acute events overnight. Abdominal pain improving, crampy at LLQ. Oral intake improving Labs: WBC 9.7, hemoglobin 10.2, sodium 138, potassium 3.8, bicarb 16, BUN 8, creatinine 0.54, glucose 73, calcium 8.2 Review of systems: Pertinent positives and negatives as discussed in HPI, a complete review of systems was performed and all other systems are negative. Physical examination: Vital signs reviewed General: non toxic, no distress, appears at stated age, on room air Derm: no unusual rashes/lesions, warm Head: atraumatic, normocephalic, symmetric Eyes: EOMI, anicteric sclera, pupils equal round reactive to light ENT: Nose and ears atraumatic, NG tube noted Neck: No cervical lymphadenopathy, trachea midline, supple Mouth: no lip lesion, mucus membranes moist Cardiovascular: S1S2 reg, no murmur Lungs: CTA bilateral, no rhonchi, no rales, no accessory muscle use Abdominal: soft, nondistended, LLQ pain on light palpation, no guarding, improved bowel sounds Ext: muscle strength 5 out of 5 in all 4 extremities grossly, no gross muscle atrophy, no contractures, positive dorsalis pedis pulse bilateral, no edema Neuro: CN II-XI grossly intact, no gross focal neuro deficits Psych: Alert and oriented x 3, appropriate affect and mood Assessment/Plan: 64-year-old female with no history of abdominal surgery, d epression, hypertension here as a transfer from [facility] due to abdominal pain. Evaluated as colonic obstruction with distention from fecal impaction. Transferred to our facility for higher level of care due to persistent hypotension. Found to have MICHAELLE and anemia on admission The patient is admitted with an anticipated greater than than 2 midnight stay for evaluation of abdominal pain secondary to colitis and infectious causes Active: #. Fecal impaction, secondary to ileus #. Colitis, autoimmune and infectious causes ruled out, likely secondary to above #. Chronic cholecystits with Biliary hypokinesia on HIDA scan #. Lactic acidosis secondary to above, resolved Abdominal pelvis CT showed diffuse colitis with no associated obstruction, dilation of the gallbladder lumen and questionable gallbladder bladder wall thickening Gallbladder ultrasound showed small amount of free fluid adjacent to the liver with hepatomegaly HIDA scan biliary hypokinesia with a low ejection fraction of 28% Empiric IV antibiotics with Ceftriaxone and metronidazole Continue with IV pain control and Zofran IV for nausea Low fat diet. Advance as tolerated Surgery consulted. Planned lap north outpatient #. Acute Kidney Injury, prerenal, resolved #. Hypotension, resolved #. Hypokalemia, resolved Potassium 3.8 today #. Normocytic anemia, stable Hemoglobin 10.2 today Chronic Conditions: #. Diabetes mellitus -Hemoglobin A1c 5.8 -Hold home medications -Glucose Accu-Cheks ACHS -Initiate Insulin sliding scale ACHS -Monitor for hypoglycemia #. Hypertension #. Depression Hold NSAIDs and diuretics for now Continue with home Norvasc, lisinopril, Cymbalta, melatonin, Remeron DVT ppx: Heparin subcu CODE STATUS: Full Discussed with: Patient Anticipated discharge place: Home Shirin Sellers MD PGY-1 Internal Medicine Dictation was produced using [employer] dictation software. please excuse any grammatical, word or spelling errors. Objective - Vital Signs Vital signs: Vital Signs Temp 98.9 F 03/14/25 04:00 Pulse 99 03/14/25 04:00 Resp 16 03/14/25 04:00 BP 125/79 03/14/25 04:00 Pulse Ox 94 L 03/14/25 04:00 FiO2 Intake & Output 03/13/25 03/14/25 03/14/25 18:59 06:59 18:59 Intake Total 1365 20 Balance 1365 20 Weight 86.1 kg Intake: IV 525 20 Invasive Line 3 20 Sodium Chloride 0.9% 1, 375 000 ml @ 75 mls/hr IV . [id number] ALEXA Rx#:[id number] cefTRIAXone 2 gm In 50 Sodium Chloride 0.9% 50 ml @ 100 mls/hr IVPB HS ALEXA Rx#:[id number] metroNIDAZOLE-NS PMX 500 100 mg In Saline 1 100ml.bag @ 100 mls/hr IVPB Q8HR ALEXA Rx#:[id number] Oral 840 Other: Voiding Method Toilet Bedside Commode # Voids 1 1 - Labs CBC & Chem 7: 03/14/25 07:19 03/14/25 07:19 Labs: Abnormal Lab Results - Last 24 Hours (Table) 03/13/25 03/13/25 03/14/25 Range/Units 06:55 15:45 07:19 RBC 3.15 L (4.10-5.20) 10*6/uL Hgb 10.2 L (12.0-15.0) g/dL Hct 29.6 L (37.2-46.3) % MCH 32.4 H (27.0-32.0) pg MPV 9.1 L (9.5-12.2) fL Immature Gran # 0.36 H (0.00-0.04) 10*3/uL Neutrophils # (Manual) 8.61 H (1.3-7.7) k/uL Potassium 3.4 L (3.5-5.1) mmol/L Chloride (98-107) mmol/L Carbon Dioxide (22-30) mmol/L Glucose (74-99) mg/dL Calcium (8.4-10.2) mg/dL 03/14/25 Range/Units 07:19 RBC (4.10-5.20) 10*6/uL Hgb (12.0-15.0) g/dL Hct (37.2-46.3) % MCH (27.0-32.0) pg MPV (9.5-12.2) fL Immature Gran # (0.00-0.04) 10*3/uL Neutrophils # (Manual) (1.3-7.7) k/uL Potassium (3.5-5.1) mmol/L Chloride 113 H (98-107) mmol/L Carbon Dioxide 16 L (22-30) mmol/L Glucose 73 L (74-99) mg/dL Calcium 8.2 L (8.4-10.2) mg/dL Microbiology - Last 24 Hours (Table) 03/10/25 11:39 Blood Culture - Preliminary Blood
[2025-03-14 16:31] LABS: Glucose,Whole Blood 82 mg/dL (70-110)
[2025-03-14 19:56] LABS: Glucose,Whole Blood 90 mg/dL (70-110)
[2025-03-15 06:05] LABS: Glucose,Whole Blood 95 mg/dL (70-110)
[2025-03-15 07:30] LABS: African American GFR (CKD) >90 (>60 ml/min/1.73 sqM); Anion Gap 7 mmol/L; Blood Urea Nitrogen 2 mg/dL (7-17); Carbon Dioxide 21 mmol/L (22-30); Chloride 108 mmol/L (98-107); Glucose 90 mg/dL (74-99); Non-African American GFR(CKD) >90 (>60 ml/min/1.73 sqM); Potassium 3.4 mmol/L (3.5-5.1); Sodium 136 mmol/L (137-145)
[2025-03-15] MEDS: POTASSIUM CHLORIDE ER 20 MEQ TAB.ER PO STA (09:20)
[2025-03-15] MEDS: lisinopriL 20 MG TAB PO SCH (09:20)
--- NOTE | 2025-03-15 10:04 | P.PN ---
Subjective Progress Note Date: 03/15/25 Patient is resting comfortably in her bed. There are no acute changes. On exam vital signs appear stable. Abdomen soft. Chronic cholecystitis. Patient will undergo outpatient laparoscopic cholecystectomy. Objective - Vital Signs Vital signs: Vital Signs Temp 99.0 F 03/15/25 04:00 Pulse 84 03/15/25 04:00 Resp 16 03/15/25 04:00 BP 151/91 03/15/25 04:00 Pulse Ox 97 03/15/25 04:00 FiO2 Intake & Output 03/14/25 03/15/25 03/15/25 18:59 06:59 18:59 Intake Total 1182 10 222 Balance 1182 10 222 Weight 87 kg Intake: IV 170 10 Invasive Line 3 20 10 cefTRIAXone 2 gm In 50 Sodium Chloride 0.9% 50 ml @ 100 mls/hr IVPB HS ALEXA Rx#:[id number] metroNIDAZOLE-NS PMX 500 100 mg In Saline 1 100ml.bag @ 100 mls/hr IVPB Q8HR ALEXA Rx#:[id number] Oral 1012 222 Other: Voiding Method Toilet Bedside Commode # Voids 1 - Labs CBC & Chem 7: 03/14/25 07:19 03/15/25 06:40 Labs: Abnormal Lab Results - Last 24 Hours (Table) 03/15/25 Range/Units 06:40 Sodium 136 L (137-145) mmol/L Potassium 3.4 L (3.5-5.1) mmol/L Chloride 108 H (98-107) mmol/L Carbon Dioxide 21 L (22-30) mmol/L BUN 2 L (7-17) mg/dL Creatinine 0.45 L (0.52-1.04) mg/dL Calcium 8.0 L (8.4-10.2) mg/dL
[2025-03-15] MEDS ORDERED: ACETAMINOPHEN TAB 325 MG TAB PO PRN (10:07)
[2025-03-15 11:38] LABS: Glucose,Whole Blood 96 mg/dL (70-110)
--- NOTE | 2025-03-15 13:45 | P.PN ---
Subjective Progress Note Date: 03/15/25 Patient is a 64-year-old female with hypertension, depression, insomnia, no history of abdominal surgery here as transfer from [facility] due to severe abdominal pain. Patient reported that she has not had a bowel movement in the last 3 days and was experiencing worsening cramping abdominal pain with associated nausea in the last 5 days that was worse with movement and deep inhalations. She sought care in [facility] due to 2 days of severe abdominal pain with associated nausea and multiple epsiodes of vomiting that was dark but nonbloody. She underwent a CT scan of the abdomen and results showed colonic obstruction with distension due to impaction. Prior to transfer patient was given 2L IV fluid boluses, placed on Zosyn and vancomycin and did have a few bowel movements that watery but nonbloody during admission however patient was consistently hypotensive with an SBP of 80-90 and leukocytosis of 21.7 which led them to transfer to our facility for higher level of care. She denied fevers, hematochezia, jaundice, abdominal distention, bruising or bleeding. She says she usually has a BM 1-2 days. Diet consists of fruits like grapes, watermelon, apples, banannas. Has had a colonoscopy for cancer screening and was negative. On admission: Vitals: Temp 97.8, pulse rate 55, RR 18, BP 108/69, O2 saturation 94% on room air Labs: WBC 13.5, hemoglobin 11.4, MCV 93.4, platelet count 302,000, sodium 131, potassium 4, chloride 96, bicarb 22, BUN 35, creatinine 1.35 glucose 100, lactic acid 2.5, AST 48, calcium 8.7, lipase 68. Imaging: KUB x-ray showed no acute findings in the abdomen or pelvis. Abdominal pelvis CT showed diffuse colitis with no associated obstruction, dilation of the gallbladder lumen and questionable gallbladder bladder wall thickening. Chest x-ray showed no acute findings. 03/11/2025 patient seen and examined at bedside. No acute events overnight. Still having abdominal pain. Patient has had 2 bowel movements in the last 24 hours. Labs: WBC 12.09, hemoglobin 12, platelet count 2 65,000, sodium 131, potassium 3.2, bicarb 19, BUN 24, creatinine 0.8, glucose 100, calcium 7.9. C. difficile negative. Hemoglobin A1c 5.8 Imaging: Gallbladder ultrasound showed small amount of free fluid adjacent to the liver with hepatomegaly 03/12/2025 patient seen and examined at bedside. No acute events overnight. Had 5 bowel movements no blood no bile small caliber stools overnight. Still having abdominal pain. Labs: WBC 11.7, hemoglobin 10.7, MCV 96.9, platelet count 220,000, sodium 136, potassium 3.6, bicarb 19, BUN 18, creatinine 0.7, glucose 76, calcium 8.4 Imaging: HIDA scan biliary hypokinesia with a low ejection fraction of 28% 03/13/2025 patient seen and examined at bedside. Oral intake and pain has improved. Having watery stool. Labs: WBC 10.6, hemoglobin 9.4, MCV 92.8, platelet count 231,000, sodium 137, chloride 109, bicarb 21, BUN 11, creatinine 0.61, glucose 73, magnesium 1.9 03/14/2025 patient seen and examined at bedside. No acute events overnight. Abdominal pain improving, crampy at LLQ. Oral intake improving Labs: WBC 9.7, hemoglobin 10.2, sodium 138, potassium 3.8, bicarb 16, BUN 8, creatinine 0.54, glucose 73, calcium 8.2 03/15/2025 patient seen and examined at bedside. No acute events overnight. Pain improved and more localized now to LLQ burning pain. BM more solid Labs: Sodium 136, potassium 3.4, bicarb 21, BUN 2, creatinine 0.45, glucose 90, calcium 8 Review of systems: Pertinent positives and negatives as discussed in HPI, a complete review of systems was performed and all other systems are negative. Physical examination: Vital signs reviewed General: non toxic, no distress, appears at stated age, on room air Derm: no unusual rashes/lesions, warm Head: atraumatic, normocephalic, symmetric Eyes: EOMI, anicteric sclera, pupils equal round reactive to light ENT: Nose and ears atraumatic, NG tube noted Neck: No cervical lymphadenopathy, trachea midline, supple Mouth: no lip lesion, mucus membranes moist Cardiovascular: S1S2 reg, no murmur Lungs: CTA bilateral, no rhonchi, no rales, no accessory muscle use Abdominal: soft, nondistended, LLQ pain on light palpation, no guarding, improved bowel sounds Ext: muscle strength 5 out of 5 in all 4 extremities grossly, no gross muscle atrophy, no contractures, positive dorsalis pedis pulse bilateral, no edema Neuro: CN II-XI grossly intact, no gross focal neuro deficits Psych: Alert and oriented x 3, appropriate affect and mood Assessment/Plan: 64-year-old female with no history of abdominal surgery, depression, hypertension here as a transfer from [facility] due to abdominal pain. Evaluated as colonic obstruction with distention from fecal impaction. Transferred to our facility for higher level of care due to persistent hypotension. Found to have MICHAELLE and anemia on admission The patient is admitted with an anticipated greater than than 2 midnight stay for evaluation of abdominal pain secondary to colitis and infectious causes Active: #. Fecal impaction, secondary to ileus #. Colitis, autoimmune and infectious causes ruled out, likely secondary to above #. Chronic cholecystits with Biliary hypokinesia on HIDA scan #. Lactic acidosis secondary to above, resolved Abdominal pelvis CT showed diffuse colitis with no associated obstruction, dilation of the gallbladder lumen and questionable gallbladder bladder wall thickening Gallbladder ultrasound showed small amount of free fluid adjacent to the liver with hepatomegaly HIDA scan biliary hypokinesia with a low ejection fraction of 28% White count normal. Empiric IV antibiotics discontinued Continue with IV Ketorolac and Zofran PO for nausea Low fat diet. Advance as tolerated Surgery consulted. Planned lap north outpatient #. Acute Kidney Injury, prerenal, resolved #. Hypotension, resolved #. Hypokalemia Potassium 3.4 today Give 20 mEq potassium chloride p.o. Recheck potassium in the morning #. Hypomagnesemia Magnesium 1.5 today Repleted with 2 g magnesium sulfate IV Check mag in the morning #. Normocytic anemia, stable Hemoglobin 10.2 today Chronic Conditions: #. Diabetes mellitus -Hemoglobin A1c 5.8 -Hold home medications -Glucose Accu-Cheks ACHS -Initiate Insulin sliding scale ACHS -Monitor for hypoglycemia #. Hypertension #. Depression Hold NSAIDs and diuretics for now Continue with home Norvasc, lisinopril, Cymbalta, melatonin, Remeron DVT ppx: Heparin subcu CODE STATUS: Full Discussed with: Patient Anticipated discharge place: Home Shirin Sellers MD PGY-1 Internal Medicine Dictation was produced using [employer] dictation software. please excuse any grammatical, word or spelling errors. Objective - Vital Signs Vital signs: Vital Signs Temp 99.0 F 03/15/25 04:00 Pulse 84 03/15/25 04:00 Resp 16 03/15/25 04:00 BP 151/91 03/15/25 04:00 Pulse Ox 97 03/15/25 04:00 FiO2 Intake & Output 03/14/25 03/15/25 03/15/25 18:59 06:59 18:59 Intake Total 1182 10 Balance 1182 10 Weight 87 kg Intake: IV 170 10 Invasive Line 3 20 10 cefTRIAXone 2 gm In 50 Sodium Chloride 0.9% 50 ml @ 100 mls/hr IVPB HS ALEXA Rx#:[id number] metroNIDAZOLE-NS PMX 500 100 mg In Saline 1 100ml.bag @ 100 mls/hr IVPB Q8HR ALEXA Rx#:[id number] Oral 1012 Other: Voiding Method Toilet Bedside Commode # Voids 1 - Labs CBC & Chem 7: 03/14/25 07:19 03/15/25 06:40 Labs: Abnormal Lab Results - Last 24 Hours (Table) 03/15/25 Range/Units 06:40 Sodium 136 L (137-145) mmol/L Potassium 3.4 L (3.5-5.1) mmol/L Chloride 108 H (98-107) mmol/L Carbon Dioxide 21 L (22-30) mmol/L BUN 2 L (7-17) mg/dL Creatinine 0.45 L (0.52-1.04) mg/dL Calcium 8.0 L (8.4-10.2) mg/dL
[2025-03-15] MEDS: MAGNESIUM SULFATE-D5W PMX 1 GM in DEXTROSE/WATER 1 100ML.BAG IVPB SCH (13:58)
[2025-03-15] MEDS: HYDROcodone/APAP 10-325MG 1 EACH TAB PO PRN (14:58)
[2025-03-15 16:56] LABS: Glucose,Whole Blood 124 mg/dL (70-110)
[2025-03-15 20:42] LABS: Glucose,Whole Blood 79 mg/dL (70-110)
[2025-03-16 05:25] LABS: HCT 28.8 % (37.2-46.3); HGB 9.9 g/dL (12.0-15.0); MCH 32.2 pg (27.0-32.0); MCHC 34.4 g/dL (32.0-37.0); MCV 93.8 fL (80.0-97.0); Mean Platelet Volume 9.3 fL (9.5-12.2); Platelet Count 309 10*3/uL (140-440); RBC 3.07 10*6/uL (4.10-5.20); RDW 13.8 % (11.5-14.5)
[2025-03-16 05:36] LABS: African American GFR (CKD) >90 (>60 ml/min/1.73 sqM); Anion Gap 7 mmol/L; Blood Urea Nitrogen <2 mg/dL (7-17); Calcium 8.1 mg/dL (8.4-10.2); Carbon Dioxide 23 mmol/L (22-30); Chloride 105 mmol/L (98-107); Glucose 76 mg/dL (74-99); Magnesium 1.8 mg/dL (1.6-2.3); Non-African American GFR(CKD) >90 (>60 ml/min/1.73 sqM); Potassium 3.8 mmol/L (3.5-5.1); Sodium 135 mmol/L (137-145)
[2025-03-16 06:37] LABS: Glucose,Whole Blood 58 mg/dL (70-110)
[2025-03-16 06:53] LABS: Glucose,Whole Blood 65 mg/dL (70-110)
[2025-03-16 07:17] LABS: Glucose,Whole Blood 97 mg/dL (70-110)
--- NOTE | 2025-03-16 09:01 | P.PN ---
Subjective Progress Note Date: 03/16/25 Patient feels better. She wants to go home. She states her abdominal pain is resolved. On exam vital signs are stable. Abdomen soft. Resolved colitis. Chronic cholecystitis. Patient will follow-up as an outpatient for laparoscopic cholecystectomy. Objective - Vital Signs Vital signs: Vital Signs Temp 98.7 F 03/16/25 01:53 Pulse 83 03/16/25 01:53 Resp 18 03/16/25 01:53 BP 148/88 03/16/25 01:53 Pulse Ox 93 L 03/16/25 01:53 FiO2 Intake & Output 03/15/25 03/16/25 03/16/25 18:59 06:59 18:59 Intake Total 462 Balance 462 Intake: Oral 462 Other: Voiding Method Toilet # Voids 2 - Labs CBC & Chem 7: 03/16/25 04:33 03/16/25 04:33 Labs: Abnormal Lab Results - Last 24 Hours (Table) 03/15/25 03/15/25 03/16/25 Range/Units 06:04 16:55 04:33 WBC 10.10 H (4.50-10.00) 10*3/uL RBC 3.07 L (4.10-5.20) 10*6/uL Hgb 9.9 L (12.0-15.0) g/dL Hct 28.8 L (37.2-46.3) % MCH 32.2 H (27.0-32.0) pg MPV 9.3 L (9.5-12.2) fL Sodium (137-145) mmol/L BUN (7-17) mg/dL Creatinine (0.52-1.04) mg/dL POC Glucose (mg/dL) 124 H (70-110) mg/dL Calcium (8.4-10.2) mg/dL Magnesium 1.5 L (1.6-2.3) mg/dL 03/16/25 03/16/25 03/16/25 Range/Units 04:33 06:35 06:51 WBC (4.50-10.00) 10*3/uL RBC (4.10-5.20) 10*6/uL Hgb (12.0-15.0) g/dL Hct (37.2-46.3) % MCH (27.0-32.0) pg MPV (9.5-12.2) fL Sodium 135 L (137-145) mmol/L BUN <2 L (7-17) mg/dL Creatinine 0.47 L (0.52-1.04) mg/dL POC Glucose (mg/dL) 58 L 65 L (70-110) mg/dL Calcium 8.1 L (8.4-10.2) mg/dL Magnesium (1.6-2.3) mg/dL Microbiology - Last 24 Hours (Table) 03/10/25 11:39 Blood Culture - Final Blood
[2025-03-16 09:22] VITALS: BP 144/86; PULSE 94; RESP 16; TEMP 98.5
[2025-03-16 12:08] LABS: Glucose,Whole Blood 101 mg/dL (70-110)
--- NOTE | 2025-03-17 16:21 | PN ---
PROGRESS NOTE DATE OF SERVICE: 03/12/2025 CHIEF COMPLAINT: Abdominal pain. Surgical service following in regard to the patient's abdominal pain. She is having diarrhea type stools. She still complains of diffuse abdominal pain. Denies any nausea or vomiting. She is tolerating the clear liquids. HIDA scan completed, had reported a hypokinetic gallbladder. PHYSICAL EXAM: ABDOMEN: Soft. Diffuse tenderness with palpation. ASSESSMENT: 1. Abdominal pain. 2. Colitis. 3. Ileus. 4. Chronic cholecystitis. PLAN: Continue antibiotics. Continue clear liquid diet. Continue to monitor. Laparoscopic cholecystectomy when patient is feeling better. MMODL / IJN: [id number] /
== END 2025-03-16 15:12 | disposition home or self-care (01) | DRG 392 ==
LOC: EC 01:29 → 3SCARD 04:31 → OBSVTOIN 15:10 → 4SSUR 03-15 17:25
PROVIDERS: ADMIT Hospitalist; ATTEND Hospitalist
DX: A09 Infectious gastroenteritis and colitis, unspecified (principal); E87.20 Acidosis, unspecified; K56.7 Ileus, unspecified; K81.1 Chronic cholecystitis; D64.9 Anemia, unspecified; E11.9 Type 2 diabetes mellitus without complications; F32.A Depression, unspecified; I10 Essential (primary) hypertension; N17.9 Acute kidney failure, unspecified; K56.41 Fecal impaction; K44.9 Diaphragmatic hernia without obstruction or gangrene; R16.0 Hepatomegaly, not elsewhere classified; I95.9 Hypotension, unspecified; E83.42 Hypomagnesemia; E87.6 Hypokalemia; G47.00 Insomnia, unspecified; G89.29 Other chronic pain; M54.9 Dorsalgia, unspecified; M79.7 Fibromyalgia; Z79.84 Long term (current) use of oral hypoglycemic drugs; Z79.899 Other long term (current) drug therapy; Z87.891 Personal history of nicotine dependence; Z79.1 Long term (current) use of non-steroidal anti-inflammatories (NSAID); Z88.2 Allergy status to sulfonamides
CPT/HCPCS: 36415; 71045; 74018; 74019; 74177; 76705; 78227; 80048; 80053; 81003; 83036; 83605; 83690; 83735; 84132; 85025; 85027; 86140; 86255; 87040; 87324; 96361; 96365; 96366; 96375; 96376; 99285

== ENCOUNTER 2025-04-15 08:16 | Day surgery (SDC) | payer MEDICARE ==
[~2025-04-15 08:16] MED LIST: LIDOCAINE 1% (10MG/ML) FOR IV START INTRADERMA PRN; droPERidol 2.5 MG/ML VIAL IVP ONE; fentaNYL (PF) 50 MCG/ML 2 ML AMP IV PRN
[2025-04-15] MEDS: IV FLUID CONTINUATION 1,000 ML IV ONE ×2 (08:42→11:14)
[2025-04-15] MEDS: LACTATED RINGERS 1,000 ML IV SCH (09:02)
[2025-04-15] MEDS: DEXAMETHASONE SOD PHOSPHATE 4 MG/ML 1 ML VIAL IV ONE (09:03)
[2025-04-15] MEDS: ONDANSETRON 4 MG/2 ML VIAL IVP ONE (09:03)
[2025-04-15] MEDS: ACETAMINOPHEN TAB 500 MG TAB PO PRN (09:03)
[2025-04-15] MEDS: HEPARIN SODIUM,PORCINE 5,000 UNIT/ML 1 ML VIAL SQ PRN (09:03)
[2025-04-15] MEDS ORDERED: ROCURONIUM 10 MG/ML (5 ML VIAL) IV ONE (09:28)
[2025-04-15] MEDS ORDERED: fentaNYL (PF) 50 MCG/ML 2 ML AMP ONE (09:28)
[2025-04-15] MEDS ORDERED: GLYCOPYRROLATE 0.2 MG/ML 2 ML VIAL ONE (09:28)
[2025-04-15] MEDS ORDERED: PROPOFOL 10 MG/ML 20 ML VIAL IV ONE (09:28)
[2025-04-15] MEDS ORDERED: SUCCINYLCHOLINE CHLORIDE 200 MG/10 ML VIAL IV ONE (09:28)
[2025-04-15] MEDS ORDERED: HYDROmorphone (PF) 1 MG/ML ONE (09:28)
[2025-04-15] MEDS ORDERED: KETAMINE HCL IN 0.9 % NACL 50 MG/5 ML SYRINGE ONE (09:28)
[2025-04-15] MEDS ORDERED: NEOSTIGMINE 1 MG/ML 10 ML VIAL ONE (09:28)
[2025-04-15] MEDS ORDERED: LIDOCAINE 1% INJ 10MG/ML (20 ML MDV) ONE (09:28)
[2025-04-15] MEDS ORDERED: MIDAZOLAM 2 MG/2 ML VIAL ONE (09:28)
[2025-04-15] MEDS ORDERED: KETOROLAC 15 MG/ML 1 ML VIAL ONE (09:28)
[2025-04-15] MEDS: LIDOCAINE 1%-EPI 1:100,000 20 ML VIAL SQ ONE (09:51)
--- NOTE | 2025-04-15 10:18 | P.OP ---
Date of Procedure: 04/15/25 Preoperative Diagnosis: L cholecystitis Postoperative Diagnosis: Cholecystitis Procedure(s) Performed: Laparoscopic cholecystectomy Anesthesia: NEY Surgeon: Jose Antonio Jacobson Estimated Blood Loss (ml): 5 Pathology: other (Gallbladder) Condition: stable Disposition: PACU Description of Procedure: The patient was placed on the operating table. The patient received a general endotracheal tube anesthesia. The patients abdomen was prepped and draped in the usual sterile fashion. Through an infraumbilical stab incision, the fascia of the anterior abdominal wall was grasped with a pair of Kochers and then the Veress needle was placed in the peritoneal cavity. Position of the Veress needle was confirmed with positive drop test. The abdomen was then insufflated. After adequate insufflation, the 10 mm trocar was placed in the peritoneal cavity. Following this the laparoscope was placed in the peritoneal cavity. The patient was placed in the head-up, right side up position and then a 5 mm trocar was placed in the right lateral and right subcostal position under direct visualization. A 8 mm trocar was placed in the epigastric position. The gallbladder was grasped in the fundus and infundibulum. Traction on the gallbladder was placed in the lateral and the cephalad positions. The triangle of Calot was visualized.. The cystic duct was bluntly dissected until the union of the cystic duct and common bile duct was seen. A critical view of safety was achieved. The cystic duct was then divided and sealed with the Harmonic scissors. A PDS Endoloop was then placed throughout the cystic duct stump. The cystic artery divided and sealed with the Harmonic scissors. The gallbladder was then removed from the liver bed using Harmonic scissors. The gallbladder was then extracted through the epigastric port site. Operative field was checked for any bleeding spots and Harmonic scissors was used to coagulate the liver bed. The abdomen was irrigated. The trocars were removed. The skin was closed using interrupted 3-0 Vicryl suture. Dermabond dressing were applied. The patient tolerated the procedure well.
[2025-04-15] MEDS: MEPERIDINE 50 MG/ML SYRINGE IVP STA (10:32)
[2025-04-15 10:42] VITALS: TEMP 97.2
[2025-04-15 11:55] VITALS: RESP 16
[2025-04-15] MEDS: HYDROcodone/APAP 10-325MG 1 EACH TAB PO ONE (12:16)
[2025-04-15 12:34] VITALS: BP 128/76; PULSE 63
== END 2025-04-15 12:59 | disposition home or self-care (01) ==
LOC: OR 08:16
PROVIDERS: ATTEND Surgery
DX: K81.1 Chronic cholecystitis (principal); I10 Essential (primary) hypertension; G47.33 Obstructive sleep apnea (adult) (pediatric); G89.29 Other chronic pain; Z88.2 Allergy status to sulfonamides; Z88.5 Allergy status to narcotic agent; Z86.011 Personal history of benign neoplasm of the brain; Z79.899 Other long term (current) drug therapy; Z98.890 Other specified postprocedural states
CPT/HCPCS: 47562; 88304; J2250; J0330; J1644; J1100; J2710; J2175; J0690; J2405; J2003; J3010; J1171; J1885; J2704; J1596